=== PATIENT | female | born 1965 | race Caucasian/White ===

== ENCOUNTER 2024-06-20 08:44 | Day surgery (SDC) | payer BC, SELFPAY ==
[2024-06-18 14:43] VITALS: BMI 22.1
--- NOTE | 2024-06-19 10:08 | P.CONAN_ITS ---
Documented by User: Geri Donaldson NP 06/19/24 10:08 HPI - Anesthesia Eval Consult details Narrative: 59yo F for Colonoscopy PMFSH Past Medical History Medical History Anxiety OCD (obsessive compulsive disorder) Thalassemia Surgical History Surgical History History of repair of ACL Hx of varicose vein ligation Hx of laparoscopy Hx of hand surgery H/O colonoscopy Social History Social History Household Members: Significant Other Are you a primary healthcare risk control consultant to a significant other at home: No Do you presently have visiting nurse or other home services: No Patient Tobacco Use Status: Never used Tobacco Use of substances other than those prescribed or required for medical reasons: No Have you been hit, kicked, punched, or otherwise hurt by someone within the past year? If so, by whom?: No Are you DNR?: No Advance Directives: No Advance Directives Information Provided: Yes Recently lost weight without trying: No How much weight loss: Not applicable Eating poorly because of decreased appetite: No Nutrition screen score: 0 Nutrition Risks: No Nutritional Risk Patient : No : No Poor oral hygiene: Yes (missing front tooth) Meds Allergies Allergy/AdvReac Type Severity Reaction Status Date / Time lactose Allergy Intermediate Gastrointestinal Verified 06/20/24 08:55 Upset Iodinated Contrast Media Allergy Unknown Unknown Verified 06/20/24 08:55 [IV Contrast Dye] shellfish derived Allergy Unknown Unknown Verified 06/20/24 08:55 Home Medications ?Medication ?Instructions ?Recorded ?Confirmed ?Last Taken ?Type aripiprazole 2 mg tablet 2 mg PO QAM 06/18/24 06/20/24 Unknown History ascorbic acid (vitamin C) 500 mg 500 mg PO DAILY 06/18/24 06/20/24 Unknown History tablet,extended release (Vitamin C ER) latanoprost 0.005 % eye drops 1 drp ophthalmic (eye) BEDTIME 06/18/24 06/20/24 Unknown History lorazepam 0.5 mg tablet 0.5 mg PO BID PRN Anxiety 06/18/24 06/20/24 Unknown History Exam Height,Weight and Vital Signs: Height 5 ft 3.5 in Weight 57.606 kg Assessment and Plan Assessment Anesthesia Assessment: Chart Reviewed Documented by User: Yamile Jerez MD 06/20/24 10:26 PMFSH Past Medical History Medical History Anxiety OCD (obsessive compulsive disorder) Thalassemia Family History Family history of problems with anesthesia: No Surgical History Surgical History History of repair of ACL Hx of varicose vein ligation Hx of laparoscopy Hx of hand surgery H/O colonoscopy History of Problems with Anesthesia: No Social History Social History Household Members: Significant Other Are you a primary healthcare risk control consultant to a significant other at home: No Do you presently have visiting nurse or other home services: No Patient Tobacco Use Status: Never used Tobacco Use of substances other than those prescribed or required for medical reasons: No Have you been hit, kicked, punched, or otherwise hurt by someone within the past year? If so, by whom?: No Are you DNR?: No Advance Directives: No Advance Directives Information Provided: Yes Recently lost weight without trying: No How much weight loss: Not applicable Eating poorly because of decreased appetite: No Nutrition screen score: 0 Nutrition Risks: No Nutritional Risk Patient : No : No Poor oral hygiene: Yes (missing front tooth) Meds Allergies Allergy/AdvReac Type Severity Reaction Status Date / Time lactose Allergy Intermediate Gastrointestinal Verified 06/20/24 08:55 Upset Iodinated Contrast Media Allergy Unknown Unknown Verified 06/20/24 08:55 [IV Contrast Dye] shellfish derived Allergy Unknown Unknown Verified 06/20/24 08:55 Home Medications ?Medication ?Instructions ?Recorded ?Confirmed ?Last Taken ?Type aripiprazole 2 mg tablet 2 mg PO QAM 06/18/24 06/20/24 Unknown History ascorbic acid (vitamin C) 500 mg 500 mg PO DAILY 06/18/24 06/20/24 Unknown History tablet,extended release (Vitamin C ER) latanoprost 0.005 % eye drops 1 drp ophthalmic (eye) BEDTIME 06/18/24 06/20/24 Unknown History lorazepam 0.5 mg tablet 0.5 mg PO BID PRN Anxiety 06/18/24 06/20/24 Unknown History Exam Height,Weight and Vital Signs: Height 5 ft 3.5 in Weight 57.606 kg Vital Signs Temp Pulse Resp BP Pulse Ox O2 Del Method 06/20/24 09:14 98.3 F 57 16 122/63 100 Room Air Narrative Narrative: 06/20/24: 12 lead EKG: SR 61. 1st degree AV block. RBBB. LAFB. Bifascicular block. Possible lateral infact, age undetermined. Counselled to follow up with PCP/Cardiology Echo 2008 for 'abnormal ekg'. EKG image not available. Echo EF 60-65%. No RWMA. LV wall thickness normal. Diastolic filling pattern normal for age Airway Mallampati Class: II TM Dist: >3cm Neck ROM: Full Partial: Upper Loose/Missing/Broken Teeth: Yes (Missing tooth top front. Denies broken or loose teeth) Heart: RRR Lungs: CTAB Assessment and Plan Assessment Anesthesia Assessment: Anesthesia Plan Discussed and Chart Reviewed Final Anesthetic Review Family History of Problems with Anesthesia: No History of Problems with Anesthesia: No NPO: Yes ASA Class: II Final Preanesthetic Review: No Changes in Pt Med Stat, Meds/Allgs Chart Reviewed, Consent Obtained/Reviewed and Anes Risks/Benef Reviewed Patient Risk: Low Procedure Risk: Low Assessment/Block/Sedation in SS: Assess/Block/Sedation-SS Anesthetic Plan Anesthetic Plan: TIVA Disposition: Standard PACU
--- NOTE | 2024-06-20 | ECG_ITS ---
Test Reason : Rhythm Blood Pressure : / mmHG Vent. Rate : 061 BPM Atrial Rate : 061 BPM P-R Int : 240 ms QRS Dur : 148 ms QT Int : 466 ms P-R-T Axes : 000 -85 007 degrees QTc Int : 469 ms Sinus rhythm with 1st degree A-V block Right bundle branch block Left anterior fascicular block Bifascicular block Possible Lateral infarct , age undetermined Abnormal ECG No previous ECGs available Referred By: Yamile Jerez Electronically Signed By:LYN HUMPHREYS
[2024-06-20 08:57] VITALS: BMI 22.2
[2024-06-20 09:14] VITALS: BP 122/63; PULSE 57; RESP 16; TEMP 36.8; O2SAT 100
--- NOTE | 2024-06-20 09:42 | PC.NURSE ---
No previous EKG on file. Monitor showing SR with possible first degree heart block and RBBB. No cardiac history. Dr. Jerez at bedside and made aware. EKG ordered and verified findings. No new orders at this time.
[2024-06-20] MEDS: Lactated Ringers 1,000 ML 100 ML IVCONT (09:48)
--- NOTE | 2024-06-20 11:08 | PM.OP ---
Brief Operative Note Date of Service: 06/20/24 Pre-op diagnosis: Screening Post-op diagnosis: other (Diverticulosis) Procedure: Colonoscopy to the cecum and TI Surgeon: Reagan Corrales MD Anesthesia: MAC Was an Tractor Mechanic Apprentice used for this Procedure?: No Estimated blood loss (mL): 0 Pathology: none sent Condition: stable Disposition: PACU
[2024-06-20 11:10] VITALS: BP 113/61; PULSE 59; RESP 18; TEMP 36.3; O2SAT 100
--- NOTE | 2024-06-20 11:19 | OP_ITS ---
DATE OF SERVICE: 06/20/2024 SURGEON: Reagan Corrales MD INDICATIONS: The patient presents for evaluation of personal history of tubular adenoma of the colon and colorectal cancer screening. Full consent has been obtained from her for this, including risks of bleeding and perforation. PREOPERATIVE DIAGNOSIS: POSTOPERATIVE DIAGNOSIS: PROCEDURE PERFORMED: Colonoscopy to the cecum and terminal ileum. ESTIMATED BLOOD LOSS: COMPLICATIONS: ANESTHESIA: Monitored anesthesia care. ASSISTANTS: SPECIMENS: PREOPERATIVE DIAGNOSES: Colorectal cancer screening and personal history of tubular adenoma of the colon. POSTOPERATIVE DIAGNOSES: Colorectal cancer screening, personal history of tubular adenoma of the colon, mild sigmoid diverticulosis, and small internal hemorrhoids. DESCRIPTION OF PROCEDURE: The patient was placed in the left lateral decubitus position. The digital rectal exam revealed no abnormalities. The Olympus video pediatric colonoscope was then entered into the rectum and advanced easily to the cecum. Once in the cecum, I did identify normal-appearing cecal pouch with appendiceal orifice and a normal-appearing ileocecal valve. The terminal ileum was cannulated and appeared normal. Scope was withdrawn back in the colon. The entire cecum and ileocecal valve appeared normal. The scope was slowly withdrawn assessing all mucosal surfaces carefully. Preparation was excellent. I did not visualize any sign of polyps, colitis, nor angiodysplasias. There was a mild amount of sigmoid diverticulosis. In the rectum, scope was retroflexed, visualizing small internal hemorrhoids, but no other pathology. The rectal mucosa appeared normal. The scope was straightened and withdrawn from the patient. She tolerated the procedure well and was returned to the recovery area in stable condition. IMPRESSION: 1. Mild diverticulosis. 2. Small internal hemorrhoids. PLAN: I would recommend a repeat colonoscopy in 5 years for further screening. She will, otherwise, see me on a p.r.n. basis. MD BRENTON Beltran/ANDREW / [id number]
[2024-06-20 11:25] VITALS: BP 120/60; PULSE 63; RESP 18; TEMP 36.3; O2SAT 99
== END 2024-06-20 11:50 | disposition home or self-care (01) ==
PROVIDERS: PCP Family Medicine; Visit Provider Internal Medicine
PROC: 0DJD8ZZ Inspection of Lower Intestinal Tract, Via Natural or Artificial Opening Endoscopic (ICD-10-PCS; CPT 45378; principal; 2024-06-20 10:30)
DX: Z12.11 Encounter for screening for malignant neoplasm of colon (principal); Z86.010 Personal history of colon polyps; K57.30 Diverticulosis of large intestine without perforation or abscess without bleeding; K64.8 Other hemorrhoids; D56.9 Thalassemia, unspecified; F42.9 Obsessive-compulsive disorder, unspecified; F41.9 Anxiety disorder, unspecified; Z79.899 Other long term (current) drug therapy; Z98.890 Other specified postprocedural states
CPT/HCPCS: 45378; 93005; J2704

== ENCOUNTER 2025-06-10 08:47 | Outpatient (AMB) | payer BC, SELFPAY ==
--- OUTSIDE RECORDS SUMMARY | 2023-11-19 08:44 | XMS_ITS | Continuity of Care Document ---
Author Organization [facility] Address [address] [place] [address] Phone Care Team Providers Care Instructor Military Science Name Role Phone Juan Alberto Lassiter MD Unavailable Unavailable Procedures Procedure Date Office/Outpt E&M Established 15 Mins Nov Duplex Scan-extrem Veins; / Duplex Scan-extrem Veins; / Office/Outpt E&M Established 15 Mins Oct Surgical Stockings CEP Knee High -30 J Phleb Veins - Extrem - To 20 Duplex Scan-extrem Veins; / 24 Endovenous Rf, 1st Vein Endovenous Laser, 1st Vein Office/Outpt E&M Established 10 Mins - T elemedicine Offic Cons New/estab Mod 40 Mi 23 Duplex Scan-extrem Veins; Uni/ 23 Advance Directives Directive Yes / No Effective Date File Name No Information Encounters Encounter Description Practice Location Reason(s) For Visit Diagnoses Date Provider Providers Copied on Encounter [facility], [address] [address], [id number], [place] tel:[phone] [facility] No Information 4 Sravani Avendano. [address], [place], [place], [id number]. tel:[phone] Office/Outpt E&M Established 15 Mins [facility], [address] [place] [address] Dr [address] 1000Shy [place], [id number], tel:[phone] [facility] Chronic venous hypertension (idiopathic) with other complications of left lower extremity 4 Liu HERNANDEZ RVT, TAY Kirk. [address] [place] [address], [place], [id number], [place]. tel:[phone] Referring Provider: Waldemar Mauro MD, [facility] [place] [address], [place], [address]. tel:[phone] [facility], [address] [place] [address] Dr [address] [place], [place] [address]S[place], [id number], [place] tel:[phone] [facility] [place] Encounter for follow-up examination after completed treatment for conditions other than malignant neVaricose veins of left lower extremity with pain 4 Liu HERNANDEZ RVT, RPVI Robert. [address] [place] [address], [place], [id number], [place]. tel:[phone] Referring Provider: Waldemar Mauro MD, [facility] [place] [address], [place], [address]. tel:[phone] [facility], [address] [place] [address] Dr [address]hel[address] 1000[facility] [address]Shy [place], [id number], [place] tel:[phone] [facility] [place] Encounter for follow-up examination after completed treatment for conditions other than malignant nePain in left lower leg 4 Liu HERNANDEZ RVT, TAY Kirk. [address] [place] [address], [place], [id number], [place]. tel:[phone] Referring Provider: Waldemar Mauro MD, [address] [place] [address], [place], [address]. tel:[phone] Office/Outpt E&M Established 15 Mins [facility], [address] [place] [address] Dr [address] 1000[facility] [address], [id number], [place] tel:[phone] [facility] Venous insufficiency (chronic) (peripheral)P ain in left leg 4 Liu HERNANDEZ RVT, TAY Kirk. [address] [place] [address], [place], [id number], [place]. tel:[phone] Referring Provider: Waldemar Mauro MD, [facility] [address] [place] [address], [place], [address]. tel:[phone] [facility], [address] [place] [address] Dr [address]hel[address] 1000[facility] 1000[place]hy [place], [id number], [place] tel:[phone] [facility] Varicose veins of left lower extremity with other complications 4 Mary Flores. [facility], [facility] [address], [place], [id number], [place]. tel:[phone] Referring Provider: Waldemar Mauro MD, [facility] [address] [place] [address], [place], [address]. tel:[phone] [facility], [address] [place] [address] Dr [address]S[place], [id number], [place] tel:[phone] [place] Encounter for follow-up examination after completed treatment for conditions other than malignant neVaricose veins of left lower extremity with pain 4 Liu HERNANDEZ RVT, TAY Kirk. [address] [place] [address], [place], [id number], [place]. tel:[phone] Referring Provider: Waldemar Mauro MD, [address] [place] [address], suite [facility], [place], [address]. tel:[phone] [facility], [address] [place] [address] Dr [address]Shy [place], [id number], [place] tel:[phone] [place] Chronic venous hypertension (idiopathic) with inflammation of left lower extremity 4 Liu HERNANDEZ, RVT, TAY Kirk. [facility], [address], [place], [id number], [place]. tel:[phone] Referring Provider: Waldemar Mauro MD, [address] [facility], [address], [place], [address]. tel:[phone] [facility], [address] [place] [address] Dr [address]Shy [place], [id number], [place] tel:[phone] [place] Varicose veins of left lower extremity with other complications 4 Liu HERNANDEZ, SADIE, TAY Kirk. [facility], [address], [place], [id number], [place]. tel:[phone] Referring Provider: Waldmear Mauro MD, [address] [facility], [address], [place], [address]. tel:[phone] Office/Outpt E&M Established 10 Mins - [facility], [address] [place] [address] Dr [address]Shy [place], [id number], [place] tel:[phone] [place] Varicose veins of left lower extremity with pain 3 Ronak HERNANDEZ FACS RVT TAY Cabrales. [facility], [address], [place], [address], [place]. tel:[phone] Referring Provider: Waldemar Mauro MD, [address] [place] [address], [address], [place], [address]. tel:[phone] Offic Cons New/estab Mod 40 Nm [facility], [address] [place] [address] Dr [address], [id number], [place] tel:[phone] [place] Pain in left lower legLocalized edemaCramp and spasmVaricose veins of left lower extremity with painFlail joint, unspecified joint 3 Ronak [facility]Z [facility]. [address] [place] [address], [place] [address], [place], [address], [place]. tel:[phone] Referring Provider: Waldemar Mauro MD, [facility] [address] [place] [address], [facility] [place], [address]. tel:[phone] [facility], [address] [facility] [address], [place], [id number], [place] tel:[phone] [place] Varicose veins of left lower extremity with pain 3 Ronak HERNANDEZ [facility]. [address] [place] [address], [place] [address], [place], [address], [place]. tel:[phone] Referring Provider: Waldemar Mauro MD, [address] [facility] [address] [place] [address], [facility] [place], [address]. tel:[phone] Family History Family Member Type Diagnosis Age At Onset No Information Payers Payer name Insurance type Covered republican ID Authoriza tiheath(s) [facility] [id number] Social History Type Description Quantity Date Captured Comments Alcohol Use Details Unknown Caffeine Use Details Unknown Tobacco Use Status No Information Smoking Status No Information Sex Female Chief Complaint And Reason For Visit No Information Reason For Referral Reason For Referral No Information Plan Of Treatment Date Type Action Status Goal Diet education completed Goal Tobacco cessation counseling completed Goal Tobacco cessation counseling completed Goal Diet education completed Referral Ordered: Weight management: Referral to physician timeframe: 3 Months (related to Body mass index (BMI) 23.0-23.9, adult) ordered Referral Ordered: Weight management: Referral to physician timeframe: 3 Months (related to Body mass index (BMI) 23.0-23.9, adult) ordered History Of Present Illness Encounter Date Complaint History Of Prese nt Illness No Information Functional Status Date Functional Assessmen t No Information Instructions Date Instruction Additional Infor taj Patient education booklet given Related to Chronic venous hypertension (idiopathic) with other complications of left lower extremity Lifestyle education Related to B jose mass index (BMI) 23.0-23.9, adult Giving Encouragement to exercise Related to Body mass index (BMI) 23.0-23.9, adult Diet education Related to Body mass index (BMI) 23.0-23.9, adult Pre and post instruc tions reviewed and provided Related to Pain in left lower leg Patient education booklet given Related to Pain in left lower leg Lifestyle education Related to B jose mass index (BMI) 23.0-23.9, adult Giving Encouragement to exercise Related to Body mass index (BMI) 23.0-23.9, adult Diet education Related to Body mass index (BMI) 23.0-23.9, adult Assessments Type Assessment Date No Information Patient Care Teams Name Effective Dates (start - stop) Status Members No Information
--- OUTSIDE RECORDS SUMMARY | 2024-06-20 06:20 | XMS_ITS ---
Author Organization [facility] Address [address] [place] [address] Care Team Providers Care Ophthalmic Pathologist Name Role Phone Waldemar Mauro Primary Care Provider Reagan Sauer [phone] REASON FOR VISIT screening,hx polyps Problems Problem Type SNOMED Code ICD Code Onset Dates Problem Status W/U Status Risk Notes Problem Personal history of colonic polyps (Z86.010) Active confirmed Problem Diverticular disease of colon (412596403) Diverticulosis of large intestine without perforation or abscess without bleeding (K57.30) Active confirmed Encounters Encounter Location Date Provider Diagnosis [facility] Outpatient [address] [place] [phone] 06/20/2024 Reagan Corrales Colon cancer scree lizbeth [...] * DIMITRI WALTERDOB: 3 (60 yo F)Acc No.[id number]:06/20/2024 COLON WITH MAC Patient: Warren DIMITRI HAMMONDS Provider: Hector Corrales MD :1965 A ge:59 Y S ex:Female Date:06/20/2024 Address:[address] [place] [address] [id number] Pcp:Waldemar Mauro Subjective: * Chief Complaints: * [...] 0 06/20/2024 Generated for Joselo mendosa/Lucia/Tracyitting on: 0 06/10/2025 09:16 AM EDT
--- NOTE | 2025-06-10 08:54 | A.OFFVIS_ITS ---
Vital Signs 06/10/25 08:55 Height 5 ft 3.5 in Weight 131 lb BMI 22.8 BP 120/82 Blood Pressure Location Lt brachial Position Sitting Pulse 66 Intake Visit Reasons: HEAD OF BUSINESS DEVELOPMENT/ Dr Mauro/trans myocardial ischemia Intake Note: New patient Dr Mauro head arrthymia during colonoscopy then stress test showed ? blockage little sob at times Highway Landscape Architect Required: No Allergies lactose Allergy (Intermediate, Verified 06/20/24 08:55) Gastrointestinal Upset Iodinated Contrast Media (IV Contrast Dye) Allergy (Unknown, Verified 06/20/24 08:55) Unknown shellfish derived Allergy (Unknown, Verified 06/20/24 08:55) Unknown Medication List - Last Reconciled 06/10/25 by Bakari Stewart MD aripiprazole 2 mg PO QAM ascorbic acid (vitamin C) ER (Vitamin C ER) 500 mg PO DAILY aspirin 81 mg PO DAILY latanoprost 0.005% 1 drp ophthalmic (eye) BEDTIME lorazepam 0.5 mg PO BID PRN rosuvastatin 20 mg PO BEDTIME HPI Comments Details: Thank you for referring Melisa in cardiology consultation today for abnormal stress test. Patient is a 60-year-old extremely active female with no significant past risk factors except for hyperlipidemia. Last year during colonoscopy she was told that she had abnormal EKGs and subsequently she has pull back on her work out. Prior to that she said she used to do heavy workup without having any active symptoms. Since cutting down on activity level she has notice now that she would get short of breath with sudden activity level that she was not in the past. She had no associated chest pain. She says she had also put on some of want her weight. However due to the abnormal EKGs he subsequently underwent nuclear stress test which was done at outside facility which was abnormal and she was referred here for further evaluation. She is concerned about obviously these findings and abnormal EKG. However she continues to have no new other symptoms at this point time. Denies any orthopnea, PND, leg edema. She had echocardiogram 2016 at [facility] which showed normal LV ejection fraction with mild prolapse of the mitral valve which she is aware of from before. She has been started on aspirin and rosuvastatin since the results of her stress test and referred here for further workup. She had a coronary calcium score which was reported as 0. PFSH Medical History Anxiety OCD (obsessive compulsive disorder) Thalassemia Surgical History History of repair of ACL Hx of varicose vein ligation Hx of laparoscopy Hx of hand surgery H/O colonoscopy Family History Father No problems noted. Mother Cancer Social History Household Members: Significant Other Are you a primary manager long term care to a significant other at home: No Do you presently have visiting nurse or other home services: No Patient Tobacco Use Status: Never used Tobacco Review of Systems Const Denies chills, Denies daytime sleepiness, Reports fatigue, Denies fever(s), Denies frequent falls, Denies poor appetite, Reports snoring, Denies stops breathing during sleep, Denies weakness, Reports weight gain and Denies weight loss Eyes Denies loss of vision ENT Denies dizziness and Reports hearing loss Card Denies chest pain, Denies claudication, Denies leg edema, Denies lightheadedness, Denies palpitations, Denies dyspnea, Denies dyspnea on exertion and Denies orthopnea Resp Denies cough, Denies excessive phlegm production, Denies dyspnea, Denies dyspnea on exertion, Reports snoring and Denies wheezing GI Denies abdominal pain, Denies hematochezia, Denies change in bowel habits, Denies nausea and Denies vomiting Denies urinary frequency and Denies dysuria Musc Denies arthralgias, Reports muscle weakness and Denies numbness Skin/Breast Denies nail changes and Denies rash Neuro Denies Abnormal speech present, Denies dizziness, Denies frequent falls, Denies loss of vision, Denies memory loss, Denies numbness and Denies weakness Psych Denies depression and Denies memory loss Endo Reports fatigue and Denies palpitations Kulwinder/Lymph Reports easy bruising and Reports other (anemia) Aller/Immun Denies wheezing Physical Exam Vital Signs: Last Vital Signs Pulse 66 06/10/25 08:55 BP 120/82 06/10/25 08:55 BMI result Body Mass Index 22.8 Const General: cooperative, comfortable, no acute distress, well developed, alert, awake, Physically active and well groomed Nutritional Appearance: average body habitus and well nourished Orientation/consciousness: patient oriented x3 Limitations: no limitations HEENT Head: Yes normocephalic and Yes atraumatic Neck Neck: Yes trachea midline, Yes supple and Yes no JVD Resp Effort & Inspection: normal respiratory effort Auscultation: clear to auscultation bilaterally Cardio Jugular venous distension: no JVD Palpation: normal PMI Rate: regular rate Rhythm: regular rhythm Heart sounds: S1 normal heart sound present, S2 normal heart sound present, no click, no gallops, no murmurs and no rubs Bruits: no carotid bruits GI Auscultation: normal bowel sounds Skin General skin exam: no rashes or lesions noted Neuro General: patient oriented x3 and no focal motor deficits Speech: No Abnormal speech present Extrem General: Yes no clubbing, cyanosis or edema Psych Appearance: grossly normal Office Procedures EKG Details: EKG shows normal sinus rhythm first-degree AV block with right bundle-branch block and possible left anterior fascicular block with poor R-wave progression [place]. [id number], Complete Assessment & Plan Assessment & Plan (1) Abnormal EKG: Code(s): R94.31 - Abnormal electrocardiogram [ECG] [EKG] Category: Medical Plan: Abnormal EKG in this middle-aged woman with prior history of hyperlipidemia with abnormal nuclear stress test without any concerning symptoms with a coronary calcium score is 0. Her likelihood of obstructive coronary artery disease is low although given her abnormal EKG structural heart disease needs to be ruled out. I would suggest her to undergo coronary CTA for further evaluation for significant obstructive coronary artery disease that will guide treatment. Possibility of false-positive myocardial perfusion imaging was discussed with her. She understands. Further treatment based on the findings of coronary CTA. Till then I would continue low-dose aspirin as well as rosuvastatin therapy and avoid extreme strenuous activity but advised to maintain her active lifestyle. Will also suggest an echocardiogram to rule out any other structural abnormalities including LV systolic dysfunction and worsening valvular function although clinically she has no signs or symptoms of heart failure. This was discussed with her. She understands and agrees. Will follow up in the clinic after above-mentioned test. Thank you for allowing me to partake in her care Coding Level of Care Code New Pt Level 4 (31061) Complex EM visit Add On G2211 Diagnoses Abnormal EKG R94.31 CPT Codes EKG - CPT: 10715-[id number], Complete ([id number])
[2025-06-10 08:55] VITALS: BP 120/82; PULSE 66; BMI 22.8
--- OUTSIDE RECORDS SUMMARY | 2025-06-10 09:15 | XMS_ITS | Clinical Summary ---
Author Organization [address] [place] [address] Address [address] [place] [address] Phone Care Team Providers Care Obstetrics Teacher Name Role Phone Waldemar Mauro MD Primary Care Provider [phone] Allergies Active Allergy Reactions Criticality Noted Date Comments Iodinated Contrast Media Anaphylaxis High 05/05/2025 Iodinated contrast media (substance) Shellfish Derived Anaphylaxis High 05/05/2025 Shrimp Anaphylaxis High 01/19/2017 Medications ARIPiprazole (ABILIFY) 2 mg tablet Take 1 tablet (2 mg total) by mouth 1 (one) time each day in the morning. 11/08/2024 Active Encounters Date Type Department Care Team Description 05/05/2025 1:00 PM EDT Ancillary Procedure [facility]ac, Located Within [facility] [address] [id number] Other forms of dyspnea 04/16/2025 Telephone Ltac, Located Within [facility] [address] [id number] Waldemar Mauro MD from Last 3 Months Social History Tobacco Use Types Packs/Day Years Used Date Smoking Tobacco: Never Smokeless Tobacco: Never Tobacco Cessation:Counseling Given: Not Answered Alcohol Use Standard Drinks/Week Comments Yes 0 (1 standard drink = 0.6 oz pur e alcohol) occ Comments Unknown Sex and Gender Information Value Date Recorded Sex Assigned at Not on file Legal Sex Female 4:52 PM EST Gender Identity Not on file Sexual Orientation Not on file Obstetrics History Last Filed Vital Signs Vital Sign Reading Time Taken Comments Blood Pressure 138/87 05/05/2025 1:13 PM EDT Pulse - - Temperature - - Respiratory Rate - - Oxygen Saturation - - Inhaled Oxygen Concentration - - Weight 59.9 kg (132 lb) 05/05/2025 12:59 PM EDT Height 160 cm (5' 3 ) 05/05/2025 12:59 PM EDT Body Mass Index 23.38 05/05/2025 12:59 PM EDT Plan of Treatment Upcoming Encounters Date Type Department Care Team (Late st Contact Info) Description 07/29/2025 8:00 AM EDT Ancillary Procedure [facility] [address] [facility] [address] [place] [address] Health Maintenance Due Date Last Done Comments Pneumococcal Vaccine: 50+ Years (1 of 2 - PCV) 1982 Cervical Cancer Screening: Pap Smear 1984 Zoster Vaccines (1 of 2) 2013 RSV Immunization Adult Patients (1 - Risk 60-74 years 1-dose series) 2023 Depression Screening 10/08/2024 Cholesterol Screening (Lipid Panel) 04/17/2025 Colorectal Cancer Screening: Colonoscopy 04/17/2025 HIV Screening 04/17/2025 Hepatitis C Screening 04/17/2025 Social Influencers of Health Screening 04/17/2025 Influenza Vaccine (#1) 2025 08/02/2020 Breast Cancer Screening 03/27/2027 03/27/2025 DTaP,Tdap,and Td Vaccines (3 - Td or Tdap) 09/13/2030 09/13/2020, 10/08/2009 COVID-19 Vaccine Completed 09/15/2024, , 06/26/2022, Additional history exists HIB Vaccines Aged Out No longer eligi ble based on patient's age to complete this topic HPV Vaccines Aged Out No longer eligi ble based on patient's age to complete this topic Hepatitis A Vaccines Aged Out No long er eligible based on patient's age to complete this topic Hepatitis B Vaccines Aged Out No long er eligible based on patient's age to complete this topic IPV Vaccines Aged Out No longer eligi ble based on patient's age to complete this topic MMR Vaccines Aged Out No longer eligi ble based on patient's age to complete this topic Meningococcal ACWY Vaccine Aged Out N o longer eligible based on patient's age to complete this topic Meningococcal B Vaccine Aged Out No l onger eligible based on patient's age to complete this topic RSV Immunization Patients Under 20 months Aged Out No longer eligible based on patient's age to complete this topic Varicella Vaccines Aged Out No longer eligible based on patient's age to complete this topic Procedures Procedure Name Priority Date/Time Associated Diagnosis Comments NM EXERCISE STRESS TEST W/ MYOCARDIAL PERFUSION Routine 05/05/2025 3:14 PM EDT Other forms of dyspnea from Last 3 Months Results * NM EXERCISE STRESS TEST W/ MYOCARDIAL PERFUSION (05/05/2025 3:14 PM EDT) Exercise/injec tion duration (min) 6 CV PACS STRESS Exercise/injec tion duration (sec) 51 CV PACS STRESS Peak SBP 156 mmHg CV PACS STRESS Peak DBP 76 mmHg CV PACS STRESS Peak HR 150 bpm CV PACS STRESS Baseline HR 91 bpm CV PACS STRESS Baseline SBP 138 mmHg CV PACS STRESS Baseline DBP 87 mmHg CV PACS STRESS Estimated workload 9.5 METS CV PACS STRESS Percent HR 94 % CV PACS STRESS Rate Pressure Product 23,400.0 mmHg*bpm CV PACS STRESS Target HR 135 bpm CV PACS STRESS TID 1.22 CV PACS STRESS Nuc Stress EF 75 % CV PAC S STRESS Nuc Rest EF 73 % CV PACS STRESS BSA 1.63 m2 CV PACS STRESS Angina Index 0 CV PACS STRESS Max HR Percent 94 % CV PA CS STRESS O2 sat rest 98 % CV PACS STRESS Anatomical Region Laterality Modality Nuclear Medicine 05/05/2025 1:49 PM EDT 05/05/2025 2:20 PM EDT Impressions 05/07/2025 7:44 AM EDT 1. Abnormal exercise nuclear stress test. 2. Exercise protocol: The patient exercised for 6 minutes and 51 seconds. The patient achieved 94% of the Max predicted heart rate 3. Functional capacity: Above average functional capacity for age and gender 4. Symptoms: No chest pain during the exercise protocol 5. Stress ECG: No ischemic ECG changes with exercise, in the setting of an abnormal baseline 6. Myocardial perfusion imaging: - Myocardial perfusion imaging revealed a small in size and mild in intensity reversible perfusion defect in the apical inferior wall, suggestive of ischemia. -No evidence of any fixed perfusion defects on the myocardial perfusion imaging to suggest the presence of an infarct 7. TID was noted to be at the upper limit of normal at 1.22 8. Gated images revealed normal LV wall motion and thickening; with a normal LV systolic function (LVEF 73%). Narrative 05/07/2025 7:44 AM EDT Stress Findings A Jose protocol stress test was performed. Overall, the patient's exercise capacity was above average. Total stress time was 6 min and 51 sec. The patient experienced no angina during the test. The patient requested the test to be stopped. The patient's hemodynamic response was adequate for diagnosis. Blood pressure demonstrated a normal response. Heart rate demonstrated a normal response. The patient reported no symptoms during the stress test. ECG 59-year-old female with dyspnea and abnormal ECG; rule out ischemia. The patient has no cardiac risk factors and no known previous cardiac events. Baseline ECG shows sinus rhythm with a right bundle branch block. There were no arrhythmias during stress. There is no significant ST abnormalities during stress, in the setting of an abnormal baseline. There were no arrhythmias during recovery. No significant ischemic changes, in the setting of an abnormal baseline. Nuclear Study Quality Study technique: MPI, SPECT, multi, rest and stress, 1 day and gated. Overall image quality is good. CT attenuation correction was utilized. No radiopharmaceutical dose was extravasated. The time from injection to rest imaging is 35 mins. The time from injection to stress imaging is 40 mins. Perfusion Defect Conclusion There is no evidence of transient ischemic dilation (TID). Stress Function Comments Left ventricular systolic function post-stress is normal. Stress ejection fraction is 75%. Rest Function Comments Left ventricular function at rest was normal. Resting ejection fraction was 73%. Stress Combined Conclusion SCAN FINDINGS: Nuclear imaging of the left ventricle reveals normal cavity size at rest with no change on stress imaging. Myocardial perfusion imaging of the left ventricle reveals a small in size and mild in intensity reversible perfusion defect in the apical inferior wall. No fixed perfusion defects Gated SPECT imaging was performed which demonstrated normal LV function and thickening with a calculated LVEF of 73% Perfusion Scoring Resting Summed Score: 0 Percent Normal: 0.00% The left ventricular perfusion is normal. Perfusion Scoring Stress Summed Score: 1 Percent Normal: 1.47% Mild count reduction in the following segments: apical inferior. All other segments are normal. Perfusion Scores: SRS Score: 0 Percentage Abnormal: 0.00% Perfusion Scores: SSS Score: 1 Percentage Abnormal: 1.47% Perfusion Scores: SDS Score: 1 Percentage Abnormal: 1.47% Waldemar Mauro MD CV STRESS PROCEDURES Final Res ult from Last 3 Months Insurance [facility] Care Teams Obstetrics Teacher Relationship Specialty [place] [address] [place] [id number] PCP - General Family Medicine 04/15/25
--- OUTSIDE RECORDS SUMMARY | 2025-06-10 09:16 | XMS_ITS | Clinical Summary ---
Author Organization [address] Address [address] [place] [address] Phone Care Team Providers Care Family And Consumer Science Professor Name Role Phone Erich Connor MD Primary Care Provider [phone] Allergies No known active allergies Medications EPINEPHrine (EPIPEN) 0.3 mg/0.3 mL AtIn Inject 0.3 mg into the muscle as needed. 2 each 2 01/20/2017 Active Social History Tobacco Use Types Packs/Day Years Used Date Smoking Tobacco: Never Alcohol Use Standard Drinks/Week Comments Yes 0 (1 standard drink = 0.6 oz pur e alcohol) Comments No Sex and Gender Information Value Date Recorded Sex Assigned at Not on file Legal Sex Female 8:50 PM EDT Gender Identity Not on file Sexual Orientation Not on file Last Filed Vital Signs Vital Sign Reading Time Taken Comments Blood Pressure 102/56 01/21/2017 1:00 AM EDT Pulse 76 01/21/2017 1:00 AM EDT Temperature 36.8 C (98.3 F) 01/20/2017 8:59 PM EDT Respiratory Rate 18 01/21/2017 1:00 AM EDT Oxygen Saturation 97% 01/21/2017 1:00 AM EDT Inhaled Oxygen Concentration - - Weight 60.8 kg (134 lb) 01/20/2017 8:59 PM EDT Height - - Body Mass Index - - Plan of Treatment Health Maintenance Due Date Last Done Comments HIV screening 1976 Hepatitis C screening 1981 Tetanus adult (Td q 10,TDAP once) 1983 Cervical cancer screening 1984 Breast cancer screening 2003 Lipid disorder screening 2003 Colon cancer screening, Colonoscopy 2008 Diabetes screening 2008 Pneumococcal Vaccine (50+ ye ars) (1 of 1 - PCV) 2013 Shingles vaccine (Shingrix) (1 of 2 - Shingrix (RZV) 2 Dose Standard Series) 2013 Covid-19 vaccine series (1 - 2023-25 season) 2025 Influenza vaccine 06/08/2025 RSV Immunization (1 - 1-dose 75+ series) 2038 Meningococcal B Vaccine Aged Out No l onger eligible based on patient's age to complete this topic Meningococcal Vaccine Aged Out No filomena laci eligible based on patient's age to complete this topic Insurance [employer] Care Teams Family And Consumer Science Professor Relationship Specialty Start Date End Date Erich Connor MD [address] [phone] PCP - General Internal Medicine 01/20/17
--- OUTSIDE RECORDS SUMMARY | 2025-06-10 09:16 | XMS_ITS | Patient Health Record ---
Author Organization [facility] Address [address] [place] [address] Care Team Providers Care Collection Specialist Name Role Phone Waldemar Mauro Primary Care Provider Reagan Sauer [phone] Allergies Allergen (clinical drug ingredient) Drug/Non Drug Allergy documented on EMR Reaction Allergy Type Onset Date Status IVP Dye (uncoded) Unknown Allergy Ac tive dairy,cats,wheat,all shell fish (uncoded) Unknown Allergy Active Reason For Referral No Information Medications Medication SIG (Take, Route, Fr equency, Duration) Notes Start Date End Date Status LORazepam 0.5 MG Oral for 10 PRN A ctive Latanoprost 0.005 % INSTILL 1 DROP INTO BOTH EYES AT BEDTIME Ophthalmic for 75 Active ARIPiprazole 2 MG Oral for 30 Active Vitamin C 500 MG as directed Orally Active Immunizations Vaccine Route Administration Date Status Comme nts Influenza Unknown 10/09/2018 Refused Problems Problem Type SNOMED Code ICD Code Onset Dates Problem Status W/U Status Risk Notes Problem [id number] Encounter for screening for malignant neoplasm of colon (Z12.11) Active confirmed Problem Personal history of colonic polyps (Z86.010) Active confirmed Problem Diverticular disease of colon (180123128) Diverticulosis of large intestine without perforation or abscess without bleeding (K57.30) Active confirmed Problem 748622807085013 Preprocedural examination (Z01.818) Active confirmed Problem 240321504 Hx of adenomatou s colonic polyps (Z86.010) Active confirmed Encounters Encounter Location Date Provider Diagnosis [facility] Outpatient [address] [place] [phone] 06/20/2024 Reagan Corrales Colon cancer scree lizbeth [...] hemorrhoids (ICD-10 - K64.8) Plan Of Treatment Future Test Test Name Order Date COLONOSCOPY 05/20/2013 COLONOSCOPY 10/09/2018 COLONOSCOPY 03/14/2024 Insurance Providers Payer Name Payer Address Payer Phone Subscriber Number Group Number Insured Name Patient Relationship to Insured Coverage Start Date Coverage End Date [facility] [address] [place] [address] [id number] DIMITRI WALTER Self - patient is the insured Medical (General) History Medical History History ICD Code Denies [place],DM,CVA,Lung disease,renal dise ase Thalassemia with chronic ane azalea--had a neg transglutaminase IgA antibody, iron of 82 with iron saturation of 32%, and a hemoglobin of 11.6 with MCV of 64. Screening colonoscopy 05/2013 with a small tubular adenoma and mild diverticulosis Negative screening colonoscopy in 10/2018 OCD/anxiety Surgical History Surgery Date(Month/Year) hand surgery polyp removal(uterus) Varicose vein on LE ACL repair-right
== END 2025-06-10 09:53 | disposition home or self-care (01) ==
LOC: HO.HCS 08:48
PROVIDERS: PCP Family Medicine; Visit Provider Internal Medicine Cardiovascular Disease
DX: R94.31 Abnormal electrocardiogram [ECG] [EKG] (principal)
CPT/HCPCS: 93010; 99204

== ENCOUNTER → 2025-06-10 08:47 | Outpatient (BNVA) | payer BC, SELFPAY | PROVIDERS: PCP Family Medicine; Visit Provider Internal Medicine Cardiovascular Disease | DX: R94.31 Abnormal electrocardiogram [ECG] [EKG] (principal) | CPT/HCPCS: 93005 ==

== ENCOUNTER → 2025-07-24 08:48 | Outpatient (REF) | payer BC, SELFPAY ==
--- OUTSIDE RECORDS SUMMARY | 2024-06-20 06:20 | XMS_ITS ---
Author Organization [facility] Address [address] [place] [address] Care Team Providers Care Informatica Mdm Architect Name Role Phone Waldemar Mauro Primary Care Provider Reagan Sauer Unavailable [phone] REASON FOR VISIT screening,hx polyps Problems Problem Type SNOMED Code ICD Code Onset Dates Problem Status W/U Status Risk Notes Problem History of polyp of colon (situation) (297724647) Personal history of colonic polyps (Z86.010) Active confirmed Problem Diverticular disease of colon (460122396) Diverticulosis of large intestine without perforation or abscess without bleeding (K57.30) Active confirmed Encounters Encounter Location Date Provider Diagnosis [facility] Outpatient [address] [place] [id number] 06/20/2024 Reagan Corrales Colon cancer scree lizbeth Z12.11 ; Personal history of colonic polyps Z86.010 ; Diverticulosis of large intestine without perforation or abscess without bleeding K57.30 and Internal hemorrhoids K64.8 Assessments Encounter Date Diagnosis (ICD Code) Assessment Notes Treatment Notes Treatment Clinical Notes Section Notes 06/20/2024 Colon cancer screening (ICD-10 - Z12.11) 06/20/2024 Personal history of colonic polyps (ICD-10 - Z86.010) 06/20/2024 Diverticulosis of large intestine without perforation or abscess without bleeding (ICD-10 - K57.30) 06/20/2024 Internal hemorrhoids (ICD-10 - K64.8) Plan Of Treatment No Information Progress Notes * DIMITRI WALTERDOB: [birth year] (60 yo F)Acc No.[id number]:06/20/2024 COLON WITH MAC Patient: DIMITRI HAIRSTON Provider: Hector Corrales MD :1965 A ge:59 Y S ex:Female Date:06/20/2024 Address:[address] [place] [address] [id number] Pcp:Waldemar Mauro Subjective: * Chief Complaints: * 1 . Screening,hx polyps. * Medical History: Objective: * Vitals: Assessment: * Assessment: 1. C olon cancer screening - Z12.11 (Primary) 2 . P ersonal history of colonic polyps - Z86.010 3 . D iverticulosis of large intestine without perforation or abscess without bleeding - K57.30 4 . I nternal hemorrhoids - K64.8 ? Plan: * Treatment: * Procedure Codes: 4 5378 DIAGNOSTIC COLONOSCOPY * Preventive Medicine: KACI Screening: C olonoscopy W as interval between colonoscopies three years or more? Y es, W as last colonoscopy performed three or more years ago? Y es. * * The named appointment provid er may or may not be the originator of this progress note, and it is not deemed complete until electronically signed by the appointment provider. Sign off status: Pending * Provider: Hector Corrales MD Date: 0 06/20/2024 Generated for Joselo mendosa/Lucia/Tracyitting on: 1 09:18 AM EDT
--- NOTE | 2025-07-24 08:51 | CA_ITS ---
Transthoracic Echocardiogram Patient (Last, First, Middle): Melisa Encarnacion, Gender: F Date of : 1965 Age: 60 Procedure Date: 07/24/2025 Procedure Type: Transthoracic Echocardiogram Location: OP Height: 160.02 cm Weight: 59.42 kg BSA: 1.62 m2 Heart Rate: bpm BP: 118 / 60 mmHg Supervisor Lace Tearing: JASON Referring MD: Bakari Stewart MD Symptoms: R94.31 - Abnormal electrocardiogram [ECG] [EKG] Study Quality: Good ECG Rhythm: Sinus Conclusions: - Normal left ventricular size, thickness, systolic function, and wall motion. The visually estimated ejection fraction is between 55-60%. - E/E prime ratio is between 8 and 15 consistent with indeterminate filling pressures. - Normal right ventricular cavity size and systolic function. Findings Left Ventricle Normal left ventricular size, thickness, systolic function, and wall motion. The visually estimated ejection fraction is between 55-60%. Abnormal diastolic function is noted. Spectral Doppler is indicative of an impaired relaxation filling pattern. E/E prime ratio is between 8 and 15 consistent with indeterminate filling pressures. Right Ventricle Normal right ventricular cavity size and systolic function. Atria The left atrium is normal in size. The right atrium is normal in size. Aortic Valve Normal aortic valve structure and function. There is no aortic valve stenosis. There is no aortic valve regurgitation. Mitral Valve The mitral valve appears normal. There is trace mitral valve regurgitation. There is no mitral valve stenosis. Pulmonic Valve The pulmonic valve is normal. There is no pulmonic valve regurgitation. Tricuspid Valve Normal tricuspid valve structure. There is no tricuspid valve regurgitation. Normal right atrial pressure. There is no evidence of pulmonary hypertension. Great Vessels All visible segments of the aorta are normal in size. The visualized portions of the pulmonary artery and branches are normal. Venous The inferior vena cava is normal in size and collapses greater than 50% with inspiration. Pericardium/Pleural There is no evidence of pericardial effusion. Prior Study Comparison No prior study available for comparison. Measurements 2D Linear Measurements IVSd: 0.78 0.6-0.9/0.6-1.0 cm LVIDd: 4.68 3.9-5.3/4.2-5.9 cm LVIDd Index: 2.89 2.4-3.2/2.2-3.1 cm/m2 LVIDs: 2.71 2.0-3.6 cm LVPWd: 0.86 0.7-1.1 cm Ao Root: 3.00 2.1-3.5 cm LA Diam: 2.80 2.7-3.8/3.0-4.0 cm LAIDs Index: 1.73 1.5-2.3 cm/m2 LV Mass: 156.18 67-162/88-224 g LV Mass Index: 96.41 43-95/49-115 g/m2 LVOT Diam: 2.00 3.0+(-)1.3 cm Mitral Valve MV Pk E: 0.65 MV PK A: 0.82 MV Decel Time: 293.00 E/A: 0.80 E'Lateral: 5.44 E'Medial: 5.33 E/E' Med: 12.20 E/E' Lat: 12.00 PHT: 86.00 MVA PHT: 2.[address] [place]: 2.23 Aortic Valve AoV Pk Demar: 1.58 AoV Mn Demar: 1.08 AoV VTI: 0.35 AoV Pk Grad: 10.00 Aov Mn Grad: 5.00 JULIET Cont.VTI: 1.88 LVOT LVOT Pk Demar: 0.94 LVOT Mn Demar: 0.59 LVOT VTI: 0.21 LVOT Pk Grad: 4.00 LVOT Mn Grad: 2.00 LVOT Diam: 2.00 LVOT Area: 3.14 Diastolic Function MV Pk E: 0.65 MV Pk A: 0.82 E/A: 0.80 E'Medial: 5.33 E/E' Med: 12.20 E' Laterial: 5.44 E/E' Lat: 12.00 Right Ventricle TAPSE (mm): 28.00 Tricuspid Valve TR Pk Demar: 2.04 TR Pk Grad: 17.00 RA Press: 3.00 RVSP: 20.00 Great Vessels Aorta Ao Root-2D: 3.00 2.0-3.7 cm Ao Asc: 2.90 2.1-3.4 cm Pulmonary Veins Pulm Vein S/D 1.10 Pulmonary Valve PV Pk Demar: 0.83 Peak PV Grad: 3.00 Updated in Other Vendor System with Status of Final Sherwin Fontaine MD electronically signed on 07/26/2025 8:39:35 PM with status of Final
--- OUTSIDE RECORDS SUMMARY | 2025-07-24 09:17 | XMS_ITS | Clinical Summary ---
Author Organization [address] [facility] Address [address] [place] [address] Phone Care Team Providers Care Manager Oracle Database Name Role Phone Waldemar Mauro MD Primary Care Provider [phone] Allergies Active Allergy Reactions Criticality Noted Date [...] Description 05/05/2025 1:00 PM EDT Ancillary Procedure [facility] [address] [address] Other forms of dyspnea from Last 3 Months Social History Tobacco [...] Description 07/29/2025 8:00 AM EDT Ancillary Procedure [facility] - [address] [place] [address] Health Maintenance Due Date Last Done Comments Colorectal Cancer Screening: Colonoscopy 1963 Pneumococcal Vaccine: 50+ Years (1 of 2 - PCV) 1982 Cervical Cancer Screening: Pap Smear 1984 RSV Immunization Adult Patients (1 - Risk 50-74 years 1-dose series) 2013 Zoster Vaccines (1 of 2) 2013 Depression Screening 10/08/2024 Cholesterol Screening (Lipid Panel) 04/17/2025 HIV Screening 04/17/2025 Hepatitis C Screening [...] Scores: SDS Score: 1 Percentage Abnormal: 1.47% us Waldemar Mauro MD CV STRESS PROCEDURES Final Res ult from Last 3 Months Insurance [facility] Care Teams Manager Oracle Database Relationship Specialty Start Date End Date Waldemar Mauro MD [address] [phone] PCP - General Family Medicine 04/15/25
--- OUTSIDE RECORDS SUMMARY | 2025-07-24 09:18 | XMS_ITS | Data Portability ---
Author Organization [facility], Main Office Address [address] [facility] [address] [address] [place] [id number] Care Team Providers Care Scientific Programmer Analyst Name Role Phone STACY CAMPOS Resort Desk Clerk LYN WEI Electric Lineman [phone] KRISS MOTT Primary Care Provider LYN LOPEZ Vascular Surgeon MILKA SNOW Tool Planer Set Up Operator BIJAN MARTINEZ Cavity Pump Operator [facility] [employer] (ALLREFERRALS) Orthopedic Surgeon Assessment Encounter Date Assessment Date Assessment LastModified by Organization Details LastModified Time 03/16/2025 03/16/2025 Discussed with patient the signs/symptoms warranted for a return to office visit and/or an ER visit. Patient understood and agreed with the plan. [email or web address] Not available 03/16/2025 13:44:24 04/07/2025 04/07/2025 1. EKG Findings: -Today's EKG shows borderline first-degree AV block and possible incomplete right bundle branch block (RBBB). -While these are nonspecific, they may be medication-related , particularly due to aripiprazole. -EKG will be faxed to her psychiatrist for review to assess for potential conduction effects of psychotropic medication and determine if dose adjustment is needed. 2. Cardiac Evaluation: -Ordered a transthoracic echocardiogram (TTE) to evaluate for structural heart disease, such as left ventricular dysfunction, valvular abnormalities, or pulmonary hypertension. -Exercise stress test also ordered to assess for ischemic heart disease given exertional symptoms and T wave findings. -Patient educated on red flag symptoms (e.g., chest pain, syncope, palpitations, or worsening dyspnea) and instructed to seek emergent care if they occur. 3. Follow-Up: -Plan telehealth follow-up in 3 months to review echocardiogram and stress test results and reassess symptom progression. 4. Contingency Plan (if Cardiac Workup is Negative): -If cardiac evaluation is unrevealing, will expand workup to include non-cardiac causes, such as pulmonary or deconditioning-rel ated etiologies. -At that point, consider chest X-ray and pulmonary function testing (PFTs). [email or web address] Not available 04/07/2025 12:59:08 05/08/2025 05/08/2025 Right Shoulder Pain: -Physical therapy discontinued due to pain and limited ROM. -Order MRI of the right shoulder to further evaluate etiology. X-ray did not suggest accute finding. Cardiac Evaluation: -Nuclear medicine stress test showed mild reversible defect. -Order coronary calcium score. -Start rosuvastatin 20 mg daily for cardioprotective measures. Repeat lipid, LFT 2 months after. -Continue aspirin 81 mg daily. -Physical activity as tolerated, monitor for symptoms. -Cardiology referral already made. Follow-Up: -Follow-up after MRI results to determine next steps for shoulder management. -Monitor cardiac workup results and adjust therapy as indicated. [email or web address] Not available 05/10/2025 15:22:27 07/13/2025 07/13/2025 Right Rotator Cu ff Tendinopathy / Planned Surgical Repair -Surgery scheduled per orthopedic recommendation. -Continue to monitor pain and function preoperatively. -Requested orthopedic records for review and inclusion in chart. -Will review operative plan and postoperative expectations once documentation is received. Cardiac Evaluation / Risk Assessment -Continue aspirin and statin at current doses per cardiology guidance. -CTA with contrast and echocardiogram as recommended and ordered by materials analyst. -Follow up with cardiology for ongoing management. Follow-Up -Follow-up as scheduled. Await and review orthopedic and cardiology reports once available. This service was provided using telemedicine ([employer]) . The patient consented and was seen through synchronous audio and video technology. If audio only connection was used, the provider used telephone communication. Patient was located at home in the [facility]. Provider was located in the office. No other persons participated in the telemedicine visit except for the patient unless otherwise indicated here. Total time of visit was 12 minutes. [email or web address] Not available 07/13/2025 18:31:19 Plan of Treatment Reminders Order Date Submit Date Provider Last Modified By Organization Details Last Modified Time Details Appointments None recorded. Lab TSH + free T4, serum 2024 025 SAMARA [facility] (Centralized Electronic Ordering - All Locations), Patient Can Go To The Location Of Their Choice, 08:07:00 thyroperox idase Ab, serum 2024 025 SAMARA [facility] (Centralized Electronic Ordering - All Locations), Patient Can Go To The Location Of Their Choice, 08:07:03 urinalysis complete, reflex culture 2024 025 SAMARA [facility] (Centralized Electronic Ordering - All Locations), Patient Can Go To The Location Of Their Choice, 08:07:01 cytology, urine 2024 025 SAMARA [facility] (Centralized Electronic Ordering - All Locations), Patient Can Go To The Location Of Their Choice, 13:27:39 lipid panel, serum 2024 SAMARA [facility], [address], [address], 08:07:02 HbA1c (hemoglobi n A1c), blood 2024 025 SAMARA [facility] (Centralized Electronic Ordering - All Locations), Patient Can Go To The Location Of Their Choice, 08:07:02 CBC w/ auto diff 2024 025 SAMARA [facility] (Centralized Electronic Ordering - All Locations), Patient Can Go To The Location Of Their Choice, 08:07:00 Referral physical therapist referral - right shoulder pain x1 month. suspect shoulder impingemen t from repetitive movement of rowing. 2024 025 ATHENA[facility]X [facility], [address] [facility], [place], [address], 14:29:40 Procedures None recorded. Surgeries None recorded. Imaging CT, coronary calcium score - self pay. 2024 025 [facility], [address], [address], [place], [address], 5 09:57:54 MRI, shoulder, w/o contrast 2024 025 [facility], [address], [address], [place], [address], 5 08:39:17 US, echocardio gram 2024 025 eugene [facility] (Outt Non-Invasive Cardiology Scheduling), [facility] [place], [address], 13:26:38 electrocar diogram 2024 Basim malagon In-Office Order, Internal Use Only DO Not Attach Compendium DO Not Attach Compendium, Do Not Delete/merge, [id number] 5 12:25:23 exercise stress test 2024 025 eugene In-Office Order, Internal Use Only DO Not Attach Compendium DO Not Attach Compendium, Do Not Delete/merge, [id number] 13:27:00 US, breast, bilateral - To be done with Mammo 2024 025 eugene [facility], [address] [place], [address], 5 13:08:15 MAMMO, screening, bilateral - Perform Diagnostic Mammogram and Breast Ultrasound if needed / Perform Ultrasound Guided Aspiration and/or Breast Biopsy if warranted 2024 025 e[facility]ene [facility], [address] [place], [address], 5 13:08:03 XR, shoulder, 2 or more view - right shoulder pain x1 month 2024 025 [facility], [address], [place], [address], 14:57:46 Medication Orders None recorded. Patient TargetsNo targets recorded. Patient Instructions Encounter Date Encounter Id Patient Instructions Last Modified By Organization Details Last Modified Time 03/23/2025 [id number] blood in the urine: care instructions [email or web address] Not available 03/23/2025 13:27:23 well visit, wome n 48 to 63: care instructions [email or web address] Not available 03/23/2025 13:27:22 medical record request* [email or web address] Not available 03/23/2025 13:03:36 prediabetes: car e instructions [email or web address] Not available 03/23/2025 13:27:23 04/07/2025 [id number] blood in the urine: care instructions [email or web address] Not available 04/07/2025 12:25:23 heart blocks: care instructions [email or web address] Not available 04/07/2025 12:59:19 05/08/2025 [id number] high cholesterol : care instructions [email or web address] Not available 05/08/2025 14:19:55 07/13/2025 [id number] medical record request* [email or web address] Not available 07/14/2025 09:09:40 high cholesterol : care instructions [email or web address] Not available 07/13/2025 18:31:19 Reason for Referral Physical Therapist Referral for Pain of right shoulder region right shoulder pain x1 month. suspect shoulder impingement from repetitive movement of rowing. Referring Physician: Yana Strickland, Family Medicine, Encounter Date: 03/16/2025 Results Created Date Observation Date Name Description Value Unit Range Abnormal Flag Note LastModifiedBy Organization Detail LastModifiedTime 03/26/2003/27/2025 TSH+F REE T4 TSH 4.310 uIU/m L 0.450- 4.500 normal Not Available [facility] ([facility]) [address] [facility], [place], [address], 03/28/2025 08:07:00 03/26/20 25 03/27/2025 TSH+F REE T4 T4,free(dire ct) 1.17 NG/dL 0.82-1 .77 normal Not Available [facility] ([facility]) [address] [place], [address], 03/28/2025 08:07:00 03/26/20 25 03/27/2025 CBC WITH DIFFE RENTI AL/PL ATELE T WBC 4.5 x10e3 /uL 3.4-10 .8 normal Not Available [facility] ([facility]) [address] [place], [address], 03/28/2025 08:07:00 03/26/20 25 03/27/2025 CBC WITH DIFFE RENTI AL/PL ATELE T RBC 5.49 x10e6 /uL 3.77-5 .28 above high normal Not Available [facility] ([facility]) [address] [place], [address], 03/28/2025 08:07:00 03/26/20 25 03/27/2025 CBC WITH DIFFE RENTI AL/PL ATELE T hemoglobin 10.8 g/dL 11.1-1 5.9 below low normal Not Available [facility] ([facility]) [address] [place], [address], 03/28/2025 08:07:00 03/26/20 25 03/27/2025 CBC WITH DIFFE RENTI AL/PL ATELE T hematocrit 39.2 % 34.0-4 6.6 normal Not Available [facility] ([facility]) [address] [place], [address], 03/28/2025 08:07:00 03/26/20 25 03/27/2025 CBC WITH DIFFE RENTI AL/PL ATELE T MCV 71 fL 79-97 below low normal Not Available [facility] ([facility]) [address] [place], [address], 03/28/2025 08:07:00 03/26/20 25 03/27/2025 CBC WITH DIFFE RENTI AL/PL ATELE T MCH 19.7 pg 26.6-3 3.0 below low normal Not Available [facility] ([facility]) [address] [place], [address], 03/28/2025 08:07:00 03/26/20 25 03/27/2025 CBC WITH DIFFE RENTI AL/PL ATELE T MCHC 27.6 g/dL 31.5-3 5.7 below low normal Not Available [facility] ([facility]) [address] [place], [address], 03/28/2025 08:07:00 03/26/20 25 03/27/2025 CBC WITH DIFFE RENTI AL/PL ATELE T RDW 15.6 % 11.7-1 5.4 above high normal Not Available [facility] ([facility]) [address] [place], [address], 03/28/2025 08:07:00 03/26/20 25 03/27/2025 CBC WITH DIFFE RENTI AL/PL ATELE T platelets 201 x10e3 /uL 150-45 0 normal Not Available [facility] ([facility]) [address] [place], [address], 03/28/2025 08:07:00 03/26/20 25 03/27/2025 CBC WITH DIFFE RENTI AL/PL ATELE T neutrophils 57 % not estab. normal Not Available [facility] ([facility]) [address] [place], [address], 03/28/2025 08:07:00 03/26/20 25 03/27/2025 CBC WITH DIFFE RENTI AL/PL ATELE T lymphs 28 % not estab. normal Not Available [facility] ([facility]) [address] [place], [address], 03/28/2025 08:07:00 03/26/20 25 03/27/2025 CBC WITH DIFFE RENTI AL/PL ATELE T monocytes 8 % not estab. normal Not Available [facility] ([facility]) [address] [place], [address], 03/28/2025 08:07:00 03/26/20 25 03/27/2025 CBC WITH DIFFE RENTI AL/PL ATELE T eos 6 % not estab. normal Not Available [facility] ([facility]) [address] [place], [address], 03/28/2025 08:07:00 03/26/20 25 03/27/2025 CBC WITH DIFFE RENTI AL/PL ATELE T basos 1 % not estab. normal Not Available [facility] ([facility]) [address] [facility], [place], [address], 03/28/2025 08:07:00 03/26/20 25 03/27/2025 CBC WITH DIFFE RENTI AL/PL ATELE T immature cells DIE FITTER Not Available [facility] ([facility]) [address] [place], [address], 03/28/2025 08:07:00 03/26/20 25 03/27/2025 CBC WITH DIFFE RENTI AL/PL ATELE T neutrophils (absolute) 2.5 x10e3 /uL 1.4-7. 0 normal Not Available [facility] ([facility]) [address] [place], [address], 03/28/2025 08:07:00 03/26/20 25 03/27/2025 CBC WITH DIFFE RENTI AL/PL ATELE T lymphs (absolute) 1.2 x10e3 /uL 0.7-3. 1 normal Not Available [facility] ([facility]) [address] [place], [address], 03/28/2025 08:07:00 03/26/20 25 03/27/2025 CBC WITH DIFFE RENTI AL/PL ATELE T monocytes(ab solute) 0.4 x10e3 /uL 0.1-0. 9 normal Not Available [facility] ([facility]) [address] [facility], [place], [address], 03/28/2025 08:07:00 03/26/20 25 03/27/2025 CBC WITH DIFFE RENTI AL/PL ATELE T eos (absolute) 0.3 x10e3 /uL 0.0-0. 4 normal Not Available [facility] ([facility]) [address] [facility], [place], [address], 03/28/2025 08:07:00 03/26/20 25 03/27/2025 CBC WITH DIFFE RENTI AL/PL ATELE T baso (absolute) 0.1 x10e3 /uL 0.0-0. 2 normal Not Available [facility] ([facility]) [address] [facility], [place], [address], 03/28/2025 08:07:00 03/26/20 25 03/27/2025 CBC WITH DIFFE RENTI AL/PL ATELE T immature granulocytes 0 % not estab. Not Available [facility] ([facility]) [address] [place], [address], 03/28/2025 08:07:00 03/26/20 25 03/27/2025 CBC WITH DIFFE RENTI AL/PL ATELE T immature grans (abs) 0.0 x10e3 /uL 0.0-0. 1 Not Available [facility] ([facility]) [address] [place], [address], 03/28/2025 08:07:00 03/26/20 25 03/27/2025 CBC WITH DIFFE RENTI AL/PL ATELE T NRBC DIE FITTER Not Available [facility] ([facility]) [address] [facility], [place], [address], 03/28/2025 08:07:00 03/26/20 25 03/27/2025 CBC WITH DIFFE RENTI AL/PL ATELE T hematology comments: DIE FITTER Not Available [facility] ([facility]) [address] [facility], [place], [address], 03/28/2025 08:07:00 03/26/20 25 03/27/2025 UA/M W/RFL X CULTU RE, ROUTI NE specific gravity 1.008 1.005- 1.030 normal Not Available [facility] ([facility]) [address] [facility], [place], [address], 03/28/2025 08:07:01 03/26/20 25 03/27/2025 UA/M W/RFL X CULTU RE, ROUTI NE pH 6.5 5.0-7. 5 normal Not Available [facility] ([facility]) [address] [facility], [place], [address], 03/28/2025 08:07:01 03/26/20 25 03/27/2025 UA/M W/RFL X CULTU RE, ROUTI NE urine-color Yellow yellow Not Available [facility] ([facility]) [address] [facility], [place], [address], 03/28/2025 08:07:01 03/26/20 25 03/27/2025 UA/M W/RFL X CULTU RE, ROUTI NE appearance Clear clear Not Available [facility] ([facility]) [address] [facility], [place], [address], 03/28/2025 08:07:01 03/26/20 25 03/27/2025 UA/M W/RFL X CULTU RE, ROUTI NE WBC esterase 1+ negati ve abnormal Not Available [facility] ([facility]) [address] [facility], [place], [address], 03/28/2025 08:07:01 03/26/20 25 03/27/2025 UA/M W/RFL X CULTU RE, ROUTI NE protein Negati ve negati ve/tra ce Not Available [facility] ([facility]) [address] [place], [address], 03/28/2025 08:07:01 03/26/20 25 03/27/2025 UA/M W/RFL X CULTU RE, ROUTI NE glucose Negati ve negati ve Not Available [facility] ([facility]) [address] [place], [address], 03/28/2025 08:07:01 03/26/20 25 03/27/2025 UA/M W/RFL X CULTU RE, ROUTI NE ketones Negati ve negati ve Not Available [facility] ([facility]) [address] [place], [address], 03/28/2025 08:07:01 03/26/20 25 03/27/2025 UA/M W/RFL X CULTU RE, ROUTI NE occult blood Negati ve negati ve Not Available [facility] ([facility]) [address] [place], [address], 03/28/2025 08:07:01 03/26/20 25 03/27/2025 UA/M W/RFL X CULTU RE, ROUTI NE bilirubin Negati ve negati ve Not Available [facility] ([facility]) [address] [place], [address], 03/28/2025 08:07:01 03/26/20 25 03/27/2025 UA/M W/RFL X CULTU RE, ROUTI NE urobilinogen ,semi-qn 0.2 mg/dL 0.2-1. 0 normal Not Available [facility] ([facility]) [address] [place], [address], 03/28/2025 08:07:01 03/26/20 25 03/27/2025 UA/M W/RFL X CULTU RE, ROUTI NE nitrite, urine Negati ve negati ve Not Available [facility] ([facility]) [address] [facility] [place], [address], 03/28/2025 08:07:01 03/26/20 25 03/27/2025 UA/M W/RFL X CULTU RE, ROUTI NE microscopic examination See below: Corinna villalpando was indic ated and was perfo rmed. Not Available [facility] ([facility]) [address] [facility], [place], [address], 03/28/2025 08:07:01 03/26/20 25 03/27/2025 UA/M W/RFL X CULTU RE, ROUTI NE WBC 0-5 /hpf 0 - 5 Not Available [facility] ([facility]) [address] [facility], [place], [address], 03/28/2025 08:07:01 03/26/20 25 03/27/2025 UA/M W/RFL X CULTU RE, ROUTI NE RBC None seen /hpf 0 - 2 Not Available [facility] ([facility]) [address] [facility], [place], [address], 03/28/2025 08:07:01 03/26/20 25 03/27/2025 UA/M W/RFL X CULTU RE, ROUTI NE epithelial cells (non renal) None seen /hpf 0 - 10 Not Available [facility] ([facility]) [address] [facility], [place], [address], 03/28/2025 08:07:01 03/26/20 25 03/27/2025 UA/M W/RFL X CULTU RE, ROUTI NE epithelial cells (renal) DIE FITTER Not Available [facility] ([facility]) [address] [facility], [place], [address], 03/28/2025 08:07:01 03/26/20 25 03/27/2025 UA/M W/RFL X CULTU RE, ROUTI NE casts None seen /lpf none seen Not Available [facility] ([facility]) [address] [facility], [place], [address], 03/28/2025 08:07:01 03/26/20 25 03/27/2025 UA/M W/RFL X CULTU RE, ROUTI NE cast type DIE FITTER Not Available [facility] ([facility]) [address] [facility], [place], [address], 03/28/2025 08:07:01 03/26/20 25 03/27/2025 UA/M W/RFL X CULTU RE, ROUTI NE crystals DIE FITTER Not Available [facility] ([facility]) [address] [facility], [place], [address], 03/28/2025 08:07:01 03/26/20 25 03/27/2025 UA/M W/RFL X CULTU RE, ROUTI NE crystal type DIE FITTER Not Available [facility] ([facility]) [address] [facility], [place], [address], 03/28/2025 08:07:01 03/26/20 25 03/27/2025 UA/M W/RFL X CULTU RE, ROUTI NE mucus threads DIE FITTER Not Available [facility] ([facility]) [address] [facility], [place], [address], 03/28/2025 08:07:01 03/26/20 25 03/27/2025 UA/M W/RFL X CULTU RE, ROUTI NE bacteria None seen none seen/f ew Not Available [facility] ([facility]) [address] [facility], [place], [address], 03/28/2025 08:07:01 03/26/20 25 03/27/2025 UA/M W/RFL X CULTU RE, ROUTI NE yeast DIE FITTER Not Available [facility] ([facility]) [address] [facility], [place], [address], 03/28/2025 08:07:01 03/26/20 25 03/27/2025 UA/M W/RFL X CULTU RE, ROUTI NE trichomonas DIE FITTER Not Available [facility] ([facility]) [address] [facility], [place], [address], 03/28/2025 08:07:01 03/26/20 25 03/27/2025 UA/M W/RFL X CULTU RE, ROUTI NE comment DIE FITTER Not Available [facility] ([facility]) [address] [facility], [place], [address], 03/28/2025 08:07:01 03/26/20 25 03/27/2025 UA/M W/RFL X CULTU RE, ROUTI NE microscopic examination DIE FITTER Not Available [facility] ([facility]) [address] [facility], [place], [address], 03/28/2025 08:07:01 03/26/20 25 03/27/2025 UA/M W/RFL X CULTU RE, ROUTI NE urinalysis reflex Commen t This speci men has refle xed to a Urine Cultu re. Not Available [facility] ([facility]) [address] [facility], [place], [address], 03/28/2025 08:07:01 03/26/20 25 03/28/2025 UA/M W/RFL X CULTU RE, ROUTI NE urine culture, routine Final report Not Available [facility] ([facility]) [address] [facility], [place], [address], 03/28/2025 08:07:01 03/26/20 25 03/28/2025 UA/M W/RFL X CULTU RE, ROUTI NE result 1 No growth Not Available [facility] ([facility]) [address] [place], [address], 03/28/2025 08:07:01 03/26/20 25 03/26/2025 LIPID PANEL cholesterol, total 190 mg/dL 100-19 9 normal Not Available [facility] ([facility]) [address] [facility] [place], [address], 03/28/2025 08:07:01 03/26/20 25 03/26/2025 LIPID PANEL triglyceride s 62 mg/dL 0-149 normal Not Available [facility] ([facility]) [address] [place], [address], 03/28/2025 08:07:01 03/26/20 25 03/26/2025 LIPID PANEL HDL cholesterol 61 mg/dL >39 normal Not Available [facility] ([facility]) [address] [place], [address], 03/28/2025 08:07:01 03/26/20 25 03/26/2025 LIPID PANEL VLDL cholesterol zaid 12 mg/dL 5-40 Not Available [facility] ([facility]) [address] [place], [address], 03/28/2025 08:07:01 03/26/20 25 03/26/2025 LIPID PANEL LDL chol calc ([facility]) 117 mg/dL 0-99 above high normal Not Available [facility] ([facility]) [address] [place], [address], 03/28/2025 08:07:01 03/26/20 25 03/26/2025 LIPID PANEL LDL calc comment: DIE FITTER Not Available [facility] ([facility]) [address] [place], [address], 03/28/2025 08:07:01 03/26/20 25 03/27/2025 HEMOG LOBIN A1C hemoglobin A1C 5.4 % 4.8-5. 6 normal Predi abete s: 5.7 - 6.4 Diabe neeraj: >6.4 Glyce laura contr ol for adult s with diabe neerja: <7.0 Not Available [facility] ([facility]) [address] [place], [address], 03/28/2025 08:07:02 03/26/20 25 03/27/2025 THYRO ID ANTIB ODIES thyroid peroxidase (tpo) Ab 137 IU/mL 0-34 above high normal Not Available [facility] ([facility]) [address] [facility], [place], [address], 03/28/2025 08:07:03 03/26/20 25 03/27/2025 THYRO ID ANTIB ODIES thyroglobuli n antibody <1.0 IU/mL 0.0-0. 9 Thyro globu gaurav Antib jose measu red by Yarely Grace er Metho dolog y It shoul d be noted that the prese nce of thyro globu gaurav antib odies may not be patho genic nor diagn ostic , espec ially at very low level s. The assay martha actur er has found that four perce nt of indiv idual s witho ut evide nce of thyro id disea se or autoi mmuni ty will have posit amalia TgAb level s up to 4 IU/mL . Not Available [facility] ([facility]) [address] [facility], [place], [address], 03/28/2025 08:07:03 03/26/20 25 03/30/2025 ANGELITA EN AUTHO RIZAT ION written authorizatio n [employer] en Autho rizat ion Recei leia. Autho rizat ion recei leia from [facility] for Link Reque st on 03-30 Logge d by January amaya Anh Not Available [facility] ([facility]) [address] [facility], [place], [address], 03/30/2025 10:05:39 03/26/20 25 03/26/2025 TICK- BORNE DISEA SE AB PROFI LE result comments: Commen t Antib jose titer s may be negat amalia in the first 7-10 days of illne ss. A four- fold rise in IgG antib jose titer s for Babes ia micro ti, Anapl asma phago cytop hilum , and/o r Ehrli brittney chaff eensi s in paire d sampl es (acut e and conva lesce nt) suppo rts the diagn osis of babes iosis , anapl asmos is, and/o r ehrli chios is, respe ctive ly. Not Available [facility] ([facility]) [address] [facility] [place], [address], 04/01/2025 18:05:46 03/26/20 25 03/27/2025 TICK- BORNE DISEA SE AB PROFI LE lyme total antibody ousmane Negati ve negati ve Lyme antib odies not detec louie. Refle x testi ng is not indic ated. No labor atory evide nce of infec tion with B. burgd orfer i (Lyme disea se). Negat amalia resul ts may occur in patie nts recen tly infec louie (less than or equal to 14 days) with B. burgd orfer i. If recen t infec tion is suspe cted, repea t testi ng on a new sampl e colle cted in 7 to 14 days is recom nara d. Not Available [facility] ([facility]) [address] [facility], [place], [address], 04/01/2025 18:05:46 03/26/20 25 03/30/2025 TICK- BORNE DISEA SE AB PROFI LE babesia microti IgG <1:10 neg:<1 :10 Not Available [facility] ([facility]) [address] [facility], [place], [address], 04/01/2025 18:05:46 03/26/20 25 03/31/2025 TICK- BORNE DISEA SE AB PROFI LE E. chaffeensis IgG Negati ve neg:<1 :64 Not Available [facility] ([facility]) [address] [facility], [place], [address], 04/01/2025 18:05:46 03/26/20 25 04/01/2025 TICK- BORNE DISEA SE AB PROFI LE A. phagocytophi lum IgG Negati ve neg:<1 :64 Not Available [facility] ([facility]) [address] [facility], [place], [address], 04/01/2025 18:05:46 03/16/2003/16/2025 XR, shoul donnell, 2 or more view No observ ation record ed. [facility] [address], [place], [address], 03/16/2025 16:03:03 03/16/20 25 03/16/2025 XR, shoul donnell, 2 or more view Right should er, 2 views Reason : pain in right should er COMPAR YAMILETH: None. FINDIN GS: No fractu re or disloc ation. No arthri tic change of the glenoh umeral joint. Normal AC joint and portio ns of the clavic le includ ed on the exam. No calcif icatio n of the rotato r cuff. IMPRES LUIS ANGEL: No acute osseou s abnorm ality is seen involv ing the right should er. WSN: [id number] Orderi ng Physic tayler: Yana Strickland Y Dictat ed By: Duncan martinez MD, Brandon Alejandro Dictat ed Date/T luann: 2:51 pm Review ed By: Duncan martinez MD, Brandon Alejandro Signed By: Duncan martinez MD, Brandon Alejandro Signed Date/T luann: 2:51 pm Transc ribed By: MCKAY Transc ribed Date/T luann: 2:44 pm Patien t Class: Outpat ient [facility] (Outpt Imaging) [address], [place], [address], 03/16/2025 16:03:03 03/29/2003/29/2025 MAMMO tomy digit al, bilat eral No observ ation record ed. [facility] [address], [place], [address], 03/30/2025 11:14:25 03/29/20 25 03/27/2025 MAMMO , scree lizbeth, digit al, bilat eral PROCED URE: MM Digita l Mammo Screen ing INDICA TION: Screen ing for breast cancer . No known palpab le abnorm alitie s. Histor y of breast cancer in mother at age 61 and patern al aunt at age 40. COMPAR YAMILETH: Priors dating back to 018 TECHNI QUE: Full-f ield digita l CC and MLO 3D tomosy nthesi s images of both breast s were acquir ed. Comput er-aid ed detect ion (CAD) was utiliz ed in the interp retati on of this study. DENSIT Y: There are scatte red areas of fibrog landul ar densit y. FINDIN GS: No suspic ious masses , suspic ious microc alcifi cation s, or areas of wally ectura l distor tion are seen in either breast to sugges t malign tanisha. Biopsy marker clip is presen t in the right upper outer quadra nt. IMPRES LUIS ANGEL: No mammog raphic eviden ce of malign tanisha. RECOMM ENDATI ON: Annual mammog raphic screen ing BI-RAD S: 2 (Benig n) Lay letter mailed to zahra petty WSN: [id number] Orderi ng Physic tayler: Srinivasan Mott Dictat ed By: David Jenkins MD Dictat ed Date/T luann: 12:52 pm Review ed By: David Jenkins MD Signed By: David Jenkins MD Signed Date/T luann: 12:52 pm Transc ribed By: MCKAY Transc riptio n Date/T luann: 12:50 pm Birads : Patiflo t Class: Outpat ient [email or web address] (Outpt Imaging) [address] , [place], [address], 03/30/2025 15:26:36 04/06/20 25 04/07/2025 elect gab diogr am No observ ation record ed. [email or web address] In-Office Order Internal Use Only DO Not Attach Compendium DO Not Attach Compendium, Do Not Delete/merge, [id number] 04/07/2025 12:26:52 04/07/20 elect gab demarco am No observ ation record ed. [email or web address] In-Office Order Internal Use Only DO Not Attach Compendium DO Not Attach Compendium, Do Not Delete/merge, [id number] 04/07/2025 12:22:52 05/07/20 25 05/05/2025 nm stres s test with myoca rdial perfu luis angel No observ ation record ed. [facility] [address], [place], [address], 05/20/2025 12:52:35 05/08/2005/05/2025 exerc ise stres s test No observ ation record ed. [email or web address] In-Office Order Internal Use Only DO Not Attach Compendium DO Not Attach Compendium, Do Not Delete/merge, [id number] 05/11/2025 08:48:37 05/20/2005/19/2025 MRI, shoul donnell, w/o contr ast No observ ation record ed. [facility] ([facility]) [address], [place], [address], 05/20/2025 12:52:35 05/20/2005/19/2025 CT, coron mariza calci um score No observ ation record ed. [facility] ([facility]) [address], [place], [address], 05/20/2025 12:52:35 Result Notes Documentation Provider Name and Address Organization Details Recorded Time Xr, Shoulder, 2 Or More View : Right shoulder, 2 views Reason: pain in right shoulder COMPARISON: None. FINDINGS: No fracture or dislocation. No arthritic change of the glenohumeral joint. Normal AC joint and portions of the clavicle included on the exam. No calcification of the rotator cuff. IMPRESSION: No acute osseous abnormality is seen involving the right shoulder. WSN: [id number] Ordering Physician: Yana Strickland Dictated By: Brandon Payne MD, V Dictated Date/Time: 03/16/25 2:51 pm Reviewed By: Brandon Payne MD, V Signed By: Brandon Payne MD, V Signed Date/Time: 03/16/25 2:51 pm Transcribed By: MCKAY Transcribed Date/Time: 03/16/25 2:44 pm Patient Class: Outpatient [facility] [address], [place], [address], [facility] 03/16/2025 15:25:56 Mammo, Screening, Digital, Bilateral : PROCEDURE: MM Digital Mammo Screening INDICATION: Screening for breast cancer. No known palpable abnormalities. History of breast cancer in mother at age 61 and paternal aunt at age 40. COMPARISON: Priors dating back to 06/06/2018 TECHNIQUE: Full-field digital CC and MLO 3D tomosynthesis images of both breasts were acquired. Computer-aided detection (CAD) was utilized in the interpretation of this study. DENSITY: There are scattered areas of fibroglandular density. FINDINGS: No suspicious masses, suspicious microcalcifications, or areas of architectural distortion are seen in either breast to suggest malignancy. Biopsy marker clip is present in the right upper outer quadrant. IMPRESSION: No mammographic evidence of malignancy. RECOMMENDATION: Annual mammographic screening BI-RADS: 2 (Benign) Lay letter mailed to patient WSN: [id number] Ordering Physician: Kriss Mott Dictated By: Ayesha Jenkins MD Dictated Date/Time: 03/29/25 12:52 pm Reviewed By: Ayesha Jenkins MD Signed By: Ayesha Jenkins MD Signed Date/Time: 03/29/25 12:52 pm Transcribed By: MCKAY [employer] Date/Time: 03/29/25 12:50 pm Birads: Patient Class: Outpatient [facility] 03/30/2025 15:26:36 Problems Name Problem SNOMED Code Status Onset Date Resolution Date Notes Provider Name and Address Organization Details Recorded Time Lacerati on of finger 585757789 Completed 02/12/2017 Erich Connor MD [address], [place], [address] , [facility] 7 21:33:57 Diarrhea 17251752 Completed 10/10/2016 JOLANTA Nicholson, [facility] 7 09:49:19 Fatigue 01244687 Completed 10/10/2016 JOLANTA Nicholson, [facility] 7 09:49:23 Insomnia 888017776 Completed 11/20/2023 Kriss Mott MD [address] [facility] [address], [place], [address] , [facility] 4 15:36:49 Major depressi ve disorder 439629337 Completed 11/20/2023 Kriss Mott MD [address] [address], [place], [address] , [facility] 4 15:36:42 Tick bite 85981286 Completed 02/12/2017 Erich Connor MD [address] [address], [place], [address] , [facility] 7 21:34:11 Cutaneou s hypersen sitivity 34792074 Completed 11/20/2023 Kriss Mott MD [address] [address], [place], [address] , [facility] 4 15:36:11 Hyperlip idemia 90130703 Active Not Available [facility] 2 13:33:46 Lyme disease 91868616 Completed 02/12/2017 Erich Connor MD [address] [facility] [address], [place], [address] , [facility] 7 21:33:44 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 stacey hominis 691850533 Completed 02/12/2017 Erich Connor MD [address] [address], [place], [address] , [facility] 7 21:34:06 Adenomat ous polyp of colon 416856281 Completed 11/20/2023 Kriss Mott MD [address] [facility] [address], [facility] [place], [address] , [facility] 4 15:47:43 Tubular adenomat ous polyp of colon 648120761 Active 2012 Not Available [facility] 2 13:33:46 Allergic rhinitis 11742347 Completed 201205/18/2014 IMPRESSI ON: CALL IF NOT IMPROVIN G HER SINUS SXS.; RECORDED 05/09/20 13 1:23PM BY ALMA YEBOAH MA, ANNOTATI ON/ADDEN DUM JOLANTA Nicholson, [facility] 6 13:51:11 Allergic rhinitis 14402015 Completed 201204/21/2014 IMPRESSI ON: CALL IF NOT IMPROVIN G HER SINUS SXS.; RECORDED 05/09/20 13 1:23PM BY ALMA YEBOAH MA, ANNOTATI ON/ADDEN DUM JOLANTA Nicholson, [facility] 6 13:51:11 Adult health examinat christi Completed 201205/18/2014 IMPRESSI ON: SHE ALREADY HAS SET UP AN APPT FOR A COLONOSC OPY. SHE IS UP TO DATE ON HER MAMMO. HER HOUSEKEEPING ATTENDANT ORDERS THESE.; RECORDED 08/15/20 13 3:09PM BY SURESH PICKARD MA, MISTY ON/ADDEN DUM Not Available [facility] 4 05:23:24 Screenin g for malignan t neoplasm of colon Completed 201205/18/2014 RECORDED 08/15/20 13 3:09PM BY SURESH PICKARD MA, MISTY ON/ADDEN DUM Not Available [facility] 4 05:23:24 External hemorrho ids [id number] Completed 201205/18/2014 RECORDED 08/15/20 13 3:09PM BY SURESH PICKARD MA, MISTY ON/ADDEN DUM Not Available [facility] 4 05:23:24 Dermatop hytosis of the perianal area Completed 201205/18/2014 RECORDED 08/15/20 13 3:09PM BY SURESH PICKARD MA, ANNOTATI ON/ADDEN DUM Not Available [facility] 4 05:23:25 Adult health examinat ion Completed 201204/21/2014 IMPRESSI ON: SHE ALREADY HAS SET UP AN APPT FOR A COLONOSC OPY. SHE IS UP TO DATE ON HER MAMMO. HER HOUSEKEEPING ATTENDANT ORDERS THESE.; RECORDED 08/15/20 13 3:09PM BY SURESH PICKARD MA, ANNOTATI ON/ADDEN DUM Not Available [facility] 4 14:03:02 Screenin g for malignan t neoplasm of colon Completed 201204/21/2014 RECORDED 08/15/20 13 3:09PM BY SURESH PICKARD MA, FABIANATI ON/ADDEN DUM Not Available [facility] 4 14:03:02 External hemorrho ids [id number] Completed 201204/21/2014 RECORDED 08/15/20 13 3:09PM BY SURESH PICKARD MA, ANNOTATI ON/ADDEN DUM Not Available [facility] 4 14:03:02 Laborato ry procedur e performe d [id number] Completed 201204/21/2014 RECORDED 08/15/20 13 3:09PM BY SURESH PICKARD MA, ANNOTATI ON/ADDEN DUM JOLANTA Nicholson MA - [facility] 6 13:50:38 Dermatop hytosis of the perianal area Completed 201204/21/2014 RECORDED 08/15/20 13 3:09PM BY SURESH PICKARD MA, ANNOTATI ON/ADDEN DUM Not Available [facility] 4 14:03:03 Mammogra phy abnormal 030838674 Completed 201205/18/2014 RECORDED 09/17/20 13 2:18PM BY ALMA I COLE- EDILIA, MA, ANNOTATI ON/ADDEN DUM Not Available [facility] 4 05:23:24 Screenin g for malignan t neoplasm of breast Completed 201205/18/2014 RECORDED 09/17/20 13 2:18PM BY ALMA YEBOAH MA, ANNOTATI ON/ADDEN DUM Not Available [facility] 4 05:23:24 Patient status finding [id number] Completed 201205/18/2014 RECORDED 09/17/20 13 2:18PM BY ALMA YEBOAH MA, ANNOTATI ON/ADDEN DUM JOLANTA Nicholson [facility] 6 13:50:28 Mammogra phy abnormal [id number] Completed 201204/21/2014 RECORDED 09/17/20 13 2:18PM BY ALMA YEBOAH MA, ANNOTATI ON/ADDEN DUM Not Available [facility] 4 14:03:02 Screenin g for malignan t neoplasm of breast Completed 201204/21/2014 RECORDED 09/17/20 13 2:18PM BY ALMA YEBOAH MA, ANNOTATI ON/ADDEN DUM Not Available [facility] 4 14:03:02 Patient status finding [id number] Completed 201204/21/2014 RECORDED 09/17/20 13 2:18PM BY ALMA YEBOAH MA, ANNOTATI ON/ADDEN DUM JOLANTA Nicholson [facility] 6 13:50:28 Acute upper respirat ory infectio n 28613763 Completed 201210/10/2016 JOLANTA Nicholson [facility] 7 09:49:15 Acute sinusiti s 11899075 Completed 201210/10/2016 JOLANTA Nicholson [facility] 7 09:49:08 Laborato ry procedur e performe d 585097074 Completed 201205/31/2016 JOLANTA Nicholson, [facility] 6 13:50:38 Screenin g for malignan t neoplasm of cervix Completed 201305/31/2016 JOLANTA Nicholson, [facility] 6 13:50:44 Screenin g for malignan t neoplasm of cervix Completed 201305/18/2014 RECORDED 04/21/20 14 8:57AM BY ALAM YEBOAH MA, ANNOTATI ON/ADDEN DUM JOLANTA Nicholson, [facility] 6 13:50:44 Malaise and fatigue 547763595 Completed 201302/12/2017 Erich Connor MD [address], [place], [address] , [facility] 7 21:33:51 Laborato ry procedur e performe d 489849781 Completed 201305/18/2014 RECORDED 04/21/20 14 8:57AM BY ALMA YEBOAH MA, ANNOTATI ON/ADDEN DUM JOLANTA Nicholson, [facility] 6 13:50:38 Female genital organ symptoms 596022003 Completed 201302/12/2017 Erich Connor MD [address], [place], [address] , [facility] 7 21:34:00 Acute sinusiti s 28148175 Completed 201305/18/2014 IMPRESSI ON: PT CALLED, NOT BETTER SEEN WED; RECORDED 04/21/20 14 8:57AM BY ALMA YEBOAH MA, ANNOTATI ON/ADDEN DUM JOLANTA Nicholson, [facility] 7 09:49:08 Acute upper respirat ory infectio n 56375966 Completed 201305/18/2014 IMPRESSI ON: VIRAL URI. SINUS RINSE. CALL ON SUNDAY IF NOT IMPROVIN G AND CAN CALL [facility] FOR HER; RECORDED 04/21/20 14 8:57AM BY ALMA YEBOAH MA, ANNOTATI ON/ADDEN DUM [facility]ner [facility] 7 09:49:15 Pain of joint 68469423 Completed 201302/12/2017 Erich Connor MD [address], [place], [address] , [facility] 7 21:34:15 Current tear of medial cartilag e AND/OR meniscus of knee Completed 201311/20/2023 STORY: ACUTE INJURY TO RIGHT KNEE JUMPING AND TWISTING IN KARATE Kriss Mott MD [address], [place], [address] , [facility] 4 15:36:03 Cyst of ovary 43440513 Active 2013 Not Available [facility] 2 13:33:46 Allergic rhinitis 98796506 Active 2013 Not Available [facility] 2 13:33:46 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 2013 Not Available [facility] 2 13:33:47 Abnormal weight loss 382457610 Completed 201302/12/2017 Erich Connor MD [address], [place], [address] , [facility] 7 21:33:54 Biopsy of lesion of oral cavity Completed 201411/20/2023 Kriss Mott MD [address], [place], [address] , [facility] 4 15:36:19 Allergy to shrimp 708612827 Active 2016 Not Available [facility] 2 13:33:47 Subclini zaid hypothyr oidism 66587654 Completed 201903/28/2025 Kriss Mott MD [address], [place], [address] , [facility] 5 10:24:06 Venous varices 474684022 Active 2023 Fern Hester [facility] [address], [place], [address] , [facility] 4 15:23:58 Rupture of anterior cruciate ligament 363411073 Active 2023 STORY: ACUTE INJURY TO RIGHT KNEE JUMPING AND TWISTING IN KARATE Kriss Mott MD [address], [place], [address] , [facility] 4 15:35:58 Major depressi on in remissio n 95719686 Active 2023 Kriss Mott MD [address], [place], [address] , [facility] 4 15:36:39 Glaucoma 89486414 Active 2023 Kriss Mott MD [address], [place], [address] , [facility] 4 15:43:15 Generali zed anxiety disorder 46096153 Active 2023 Kriss Mott MD [address], [place], [address] , [facility] 4 10:55:20 Autoanti body level - finding 753091049 Active 2024 TPO detected Kriss Mott MD [address], [place], [address] , [facility] 5 10:24:16 Problem Notes None recorded. Procedures Surgical History Date Name Laterality Status Provider Name and Address Organization Details Recorded Time 05/05/20 25 Cardiovascular stress test completed Ashley Riveranett [facility] 05/11/2025 08:48:34 03/27/20 25 Most Recent Mammogram completed Summer Shine [facility] 03/30/2025 15:26:32 03/27/20 25 Mammogram Screening completed Summer Shine [facility] 03/30/2025 15:26:19 10/15/19 24 stripping of lower limb varicose veins completed Kriss Mott MD [address] [address], [place], [address], [facility] 11/20/2023 15:40:38 10/21/19 19 Date of Last Colonoscopy completed Gabby Lara [facility] 11/05/2018 11:01:49 10/21/19 19 Colonoscopy completed Gabby Lara [facility] 11/05/2018 11:01:43 07/17/20 18 Date of Last Pap Smear completed Alma cristobal [place] [facility] 10/24/2018 10:48:42 03/19/20 15 biopsy of lesion of oral cavity completed Alma cristobal [place] [facility] 10/24/2018 10:43:40 10/08/19 14 Anesth knee area surgery completed Alma cristobal [place] [facility] 02/09/2016 09:56:20 10/09/19 13 Orthopedic Surgery completed Alma cristobal MA [facility] 09/13/2020 10:18:44 Imaging Results None recorded. Procedure Notes None recorded. Medical Equipment None Reported. Allergies Allergen ID Allergen Name Allergen Category Reaction Reaction Severity Criticality Documentation Date Start Date Code Code System Note Provider Name and Address Organization Details Recorded Time 76200 shrimp allergeni c extract food anaphylax is Not available Not available 01/25/20172016 32702 2 RxNorm JOLANTA Garcia, [facility] 7 14:45:24 39155 shellfish derived food,medi cation anaphylax is Not available Not available 09/12/2018 JOLANTA Lerma, [facility] 8 10:09:21 05985 Iodinated contrast media (substanc e) medicatio n anaphylax is Not available Not available 12/19/2019 77620 2003 SNOMED due to aller gy to shrim p Alma Cole-JOLANTA Kramer, [facility] 0 13:18:43 Medications Name Sig Start Date Stop Date Status Note LastModified by Organization Details LastModified Time amoxicill in 500 mg capsule TAKE 1 CAPSULE BY MOUTH THREE TIMES A DAY FOR 7 DAYS 05/09 completed Not Available Not Available Not Available latanopro st 0.005 % eye drops INSTILL 1 DROP INTO BOTH EYES AT BEDTIME active Not Available Not Available No t Available oxcarbaze pine 150 mg tablet TAKE 1 TABLET BY MOUTH TWICE A DAY 07/31 completed Not Available Not Available Not Available prednison e 10 mg tablet TAKE 6 TABS DAILY X 4 DAYS,4 TABS X 4 DAYS,2 TABS X 4 DAYS THEN 1 TAB X 3 DAYS 05/09 completed Not Available Not Available Not Available doxycycli ne hyclate 100 mg capsule Take 1 capsule twice a day by oral route for 10 days. 07/18 completed Not Available Not Available Not Available azithromy susy 250 mg tablet TAKE 2 TABLETS BY MOUTH TODAY, THEN TAKE 1 TABLET DAILY FOR 4 DAYS 02/19 completed Not Available Not Available Not Available hydrocodo ne 5 mg-acetam inophen 325 mg tablet TAKE 1 TABLET BY MOUTH EVERY 6 HOURS NEEDED 02/19 completed Not Available Not Available Not Available Medrol (Samir) 4 mg tablets in a dose pack Take tapering dose over 6 days per instruct ions on package. 08/15 completed Not Available Not Available Not Available prednison e 20 mg tablet TAKE 1 TABLET 2 TIMES A DAY START 2 DAYS PRIOR TO CORONARY CTA INCLUDIN G ON THE DAY OF THE PROCEDUR E active Not Available Not Available No t Available Anucort-H C 25 mg supposito ry 2 TIMES PER DAY FOR 2 WEEKS 2012 active RECORDED 09/17/20 13 4:31PM BY SUZIE ERNST, OFFICE VISIT; Not Available Not Available Not Available permethri n 5 % topical cream APPLY (THOROUG HLY MASSAGE INTO SKIN FROM HEAD TO SOLES OF FEET) BY TOPICAL ROUTE ONCE LEAVE ON FOR 8-14 HR, THEN REMOVE BY THOROUGH WASHING 06/06 completed Not Available Not Available Not Available cyanocoba dee (vit B-12) 1,000 mcg tablet Take 1 tablet every day by oral route. active Not Available Not Available No t Available Vitamin C 500 mg chewable tablet Take 1 tablet every day by oral route. active Not Available Not Available No t Available aspirin 81 mg tablet,de layed release TAKE 1 TABLET BY MOUTH EVERY DAY active Not Available Not Available No t Available amoxicill in 875 mg tablet TAKE 1 TAB BY MOUTH TWICE A DAY X 4 DAYS, STARTING THE DAY AFTER SURGERY 12/30 completed Not Available Not Available Not Available famotidin e 20 mg tablet Take 1 tablet as needed by oral route as directed for [address] Stewart Not Available Not Available Not Available lorazepam 0.5 mg tablet TAKE 1 TABLET BY MOUTH TWICE A DAY NEEDED FOR 10 DAYS active Not Available Not Available No t Available temazepam 15 mg capsule TAKE 1 CAPSULE BY MOUTH EVERY DAY NEEDED 04/02 completed Not Available Not Available Not Available cephalexi n 500 mg capsule active Not Available Not Available Not Available Banophen 25 mg tablet Take 1 tablet as needed by oral route as directed for [address] Stewart Not Available Not Available No t Available nystatin- triamcino lone 100,000 unit/g-0. 1 % topical cream KACI EXT AA BID 08/02 completed Not Available Not Available Not Available sertralin e 25 mg tablet TAKE 1 TABLET BY MOUTH EVERY DAY IN THE MORNING 12/30 completed Not Available Not Available Not Available Advil 200 mg tablet Take 1 tablet every 6 hours by oral route. 09/13 completed Not Available Not Available Not Available sertralin e 50 mg tablet Take 1 tablet every day by oral route for 30 days. 2022 active Not Available Not Available Not Avai lable doxycycli ne hyclate 100 mg tablet Take 1 tablet twice a day by oral route as directed for 10 days. 03/16 completed Not Available Not Available Not Available amoxicill in 875 mg-potass ium clavulana te 125 mg tablet TAKE 1 TABLET BY MOUTH EVERY 12 HOURS FOR SINUSITI S 11/13 completed Not Available Not Available Not Available Vitamin D3 25 mcg (1,000 unit) capsule Take 1 capsule every day by oral route. 01/24 completed Not Available Not Available Not Available rosuvasta tin 20 mg tablet TAKE 1 TABLET BY MOUTH EVERYDAY AT BEDTIME active Not Available Not Available No t Available bupropion HCl XL 150 mg 24 hr tablet, extended release Take 1 tablet by oral route for 90 days. 07/31 completed Not Available Not Available Not Available Florastor 250 mg capsule TAKE 1 CAPSULE BY MOUTH ONCE DAILY 2014 active Not Available Not Available Not Avai lable aripipraz ole 1 mg/mL oral solution TAKE 3 ML EVERY DAY BY ORAL ROUTE IF NEEDED FOR 90 DAYS. active PER PATIENT PLEASE KEEP ON MED LIST Not Available Not Available Not Available EpiPen 0.3 mg/0.3 mL injection , auto-inje ctor Take 0.3 mL as needed by injectio n route as directed . 09/13 completed Not Available Not Available Not Available chlorhexi dine gluconate 0.12 % mouthwash RINSE WITH 15ML, HOLD X 30 SECONDS AND SPIT TWICE A DAY X 4 DAYS. START TAKING THE DAY AFTER SURGERY 12/30 completed Not Available Not Available Not Available aripipraz ole 2mg tablet daily active Not Available Not Available No t Available aripipraz ole 2 mg tablet TAKE 1 TABLET BY MOUTH EVERY DAY IN THE MORNING 12/30 completed Not Available Not Available Not Available Vitamin D3 125 mcg (5,000 unit) tablet Take 1 tablet every week by oral route. active Not Available Not Available No t Available Vitals Date Recorded Body height Body mass index (BMI) Body weight Heart rate Oxygen saturation Oxygen saturation in Arterial blood by Pulse oximetry Body temperature Systolic And Diastolic Provider Name and Address Organization Details Last Updated DateTime 5 160.02 cm 24.4 kg/m2 35252.7 5 g 63 /min 99 % 99 % 97.7 [degF] 104/68 mm[Hg] Geri Galvez MA [facility] 5 13:32:09 Date Recorded Body height Body mass index (BMI) Body weight Heart rate Oxygen saturation Oxygen saturation in Arterial blood by Pulse oximetry Body temperature Systolic And Diastolic Provider Name and Address Organization Details Last Updated DateTime 5 160.02 cm 23.9 kg/m2 13282.9 7 g 71 /min 98 % 98 % 97.7 [degF] 96/62 mm[Hg] Alma kimball [facility] 5 13:03:15 Date Recorded Body height Body mass index (BMI) Body weight Heart rate Oxygen saturation Oxygen saturation in Arterial blood by Pulse oximetry Body temperature Systolic And Diastolic Provider Name and Address Organization Details Last Updated DateTime 5 160.02 cm 23.6 kg/m2 93573.7 9 g 64 /min 100 % 100 % 97.8 [degF] 110/66 mm[Hg] Alma kimball [facility] 5 11:31:00 Date Recorded Body height Body mass index (BMI) Body weight Heart rate Oxygen saturation Oxygen saturation in Arterial blood by Pulse oximetry Body temperature Systolic And Diastolic Provider Name and Address Organization Details Last Updated DateTime 5 160.02 cm 23.3 kg/m2 59617.4 g 68 /min 98 % 98 % 97.7 [degF] 109/74 mm[Hg] Corina Lockwood [facility] [place] 5 14:05:32 Date Recorded Body height Body mass index (BMI) Body weight Provider Name and Address Organization Details Last Updated DateTime 07/13/2025 160.02 cm 23.2 kg/m2 66489.6 g Alma cristobal [facility] 07/13/2025 16:11:14 Social History Question Answer Notes LastModified by Organizat ion Details LastModified Time Tobacco Smoking Status Never Smoker Harriet mercado [facility] 02/04/2015 14:35:39 Do You Have An Advance Directive? Yes Information not available 05/09/2022 Is Blood Transfusion Acceptable In An Emergency? Yes Information not available 10/29/2015 What Is Your Level Of Caffeine Consumption? Moderate Coffee- 1 Daily Tea 1 Daily Information not available 11/20/2023 How Much Tobacco Do You Chew? None Information not available 10/29/2015 What Type Of Diet Are You Following? SPECIFIC Low Gluten; No Shellfish , Less Meat Information not available 03/23/2025 Which Illicit Or Recreational Drugs Have You Used? None Information not available 10/29/2015 Live Alone Or With Others? With Others Lives With Spouse (Shalini)3 Days A Week Information not available 11/20/2023 Do You Take Precautions To Prevent Distracted Driving? Yes Information not available 10/29/2015 How Often Do You Need To Have Someone Help You When You Read Instructions, Pamphlets, Or Other Written Material From Your Doctor Or Pharmacy? Sometimes Information not available 10/29/2015 Have You Served In The ? No [email or web address] [employer] Information not available 10/10/2016 Have You Or Anyone In Your Household Had Any Of The Following Symptoms In The Last 14 Days: Sore Throat, Cough, Chills, Body Aches For Unknown Reasons, Shortness Of Breath For Unknown Reasons, Loss Of Smell, Loss Of Taste, Fever At Or Greater Than 100 Degrees Fahrenheit? No Information not available 08/02/2020 Are You Or Anyone In Your Household A Health Care Provider Or Emergency Responder? No Information not available 08/02/2020 To The Best Of Your Knowledge Have You Been In Close Proximity To Any Individual Who Tested Positive For COVID-19? No Information not available 08/02/2020 *AWV ONLY* Are You Presently Prescribed Opioid Medication By PCP Or Specialist? If YES -Provider Assess The Benefit For Other, Non-opioid Pain Therapies Instead, Even If The Patient Does Not Have OUD But Is Possibly At Risk. No Information not available 08/02/2020 Have You Recently Traveled To A COVID-19 High Risk Area Or Gathering In The Last 10 Days? No Information not available 01/24/2021 What Was The Date Of Your Most Recent Tobacco Screening? 03/23/2025 Information not available 03/23/2025 How Many Children Do You Have? 0 Information not available 09/16/2021 Do You Use Protection During Sex? No Information not available 09/16/2021 Do You Use Your Seat Belt Or Car Seat Routinely? Yes Information not available 09/16/2021 Seat Belts Used Routinely Yes Information not available 05/09/2022 Are You Sexually Active? Yes Shalini Information not available 03/23/2025 Smoke Alarm In Home Yes Information not available 05/09/2022 Do You Have Smoke And Carbon Monoxide Detectors In Your Home? Yes Information not available 09/16/2021 At What Age Did You Start Smoking Tobacco? 0 Information not available 10/29/2015 Are You Passively Exposed To Smoke? No Information not available 09/13/2020 How Much Tobacco Do You Smoke? No Information not available 07/22/2015 Do You Use Sunscreen Routinely? Yes Information not available 10/29/2015 How Many Years Have You Smoked Tobacco? 0 Information not available 10/29/2015 Sex: Unknown Functional Status Question Answer Note LastModified by Organizat ion Details LastModified Time Do you use any illicit or recreational drugs? No Information not available 05/09/2022 Do you or have you ever used any other forms of tobacco or nicotine? No Information not available 05/09/2022 What is your level of alcohol consumption? Occasional socially. approx 0-2 drinks per week Information not available 03/23/2025 Do you or have you ever used smokeless tobacco? Never used smokeless tobacco rkanu Information not available 07/18/2019 Are you currently employed? 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 YESWOREST Information not available 05/09/2022 Are you able to care for yourself independently? 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 Never used electronic cigarettes Information not available 05/09/2022 What is your exercise level? Moderate daily hiking for 3 miles, yoga Information not available 03/23/2025 Mental Status None recorded. Family History Relationship Description Onset Age of this Age Resolved Age Notes LastModified by Organization Details LastModified Time Mother Malignant neoplasm of breast [email or web address] s Not available 02/24/2016 09:28:13 Mother Malignant neoplasm of lung [email or web address] s Not available 09/13/2020 10:18:23 Mother Depressive disorder [email or web address] s Not available 09/13/2020 10:18:23 Paternal Aunt Malignant neoplasm of breast [email or web address] s Not available 09/16/2021 11:08:58 Father Well adult Not available 03/23/2025 12:48:58 Father Harmful pattern of use of alcohol [email or web address] s Not available 09/13/2020 10:18:23 Maternal Grandfather Heart disease ckokar Not available 2020 11:34:41 Unspecified Relation Malignant neoplasm of colon Matern al first cousin [email or web address] s Not available 09/16/2021 11:08:58 Unspecified Relation Primary malignant neoplasm of liver 62 matern al cousin Not available 03/23/2025 12:48:58 Unspecified Relation Malignant neoplasm of lung matern al cousin [email or web address] s Not available 09/16/2021 11:08:58 Maternal Uncle Malignant neoplasm of lung bsolivanmatto s Not available 09/16/2021 11:08:58 Paternal Grandfather Malignant neoplasm of colon bsolivanmatto s Not available 09/16/2021 11:08:58 Medical History Condition Response Gout N Other N Kidney Stones N Blood Diseases N Hyperthyroidism N Breast Cancer N COPD N Depression N Lung Disease N Hypothyroidism N Defects or Inherited Disease N Anesthesia Complications N Headaches/Migraines N Anxiety Disorder N Varicose Veins Y Obesity N Vision or Eye Problems N Arthritis N Head Injury/Concussion Y Polyps N Infertility N Congenital Anomalies N Acid Reflux (GERD) N Cancer N Stroke N ADHD Y Endometriosis N High Cholesterol N Liver Disease N Fibromyalgia N Kidney Disease N Heart Problems N Ear or Hearing Problems N Hospitalizations N Thyroid Problems N GI Problems N Acne N Eating Disorder N Skin Problems N Anemia N Constipation N Bladder Problems N Mental Illness N Diabetes N Ovarian Cancer N Blood Transfusions N Seizures/Epilepsy N Tuberculosis N AIDS/HIV N Congestive Heart Failure (CHF) N Eczema N Abuse/Domestic Violence N Diverticulitis N Asthma N Allergies Y Reflux/GERD N Hepatitis N Pulmonary Embolism N Hypertension N Chicken Pox N Autism Spectrum Disorder (ASD) N Osteoporosis N Gynecological History Statement/Question Response Date of Last Pap Smear 07/17/2018 Date of Last Colonoscopy 10/21/2018 Most Recent Mammogram 03/27/2025 Most Recent Bone Density Obstetrics History GPAL:G 0 P 0 0 0 0 Immunizations Vaccine Type Date Status Note Provider Aldo e and Address Organization Details Recorded Time COVID-19 vaccine, vector-nr, rS-Ad26, PF, 0.5 mL 1 completed Gabby Lara null, [facility] 06/29/2022 15:58:23 COVID-19, mRNA, LNP-S, PF, 100 mcg/0.5mL dose or 50 mcg/0.25mL dose 1 completed Gabby Lara null, [facility] 06/29/2022 15:58:23 Influenza, split virus, quadrivalent , PF 0 completed Gabby Lara null, [facility] 06/29/2022 15:58:23 Tdap 0 completed Gabby Lara null, [facility] 06/29/2022 15:58:23 COVID-19, mRNA, LNP-S, bivalent, PF, 30 mcg/0.3 mL dose 2 completed Suzie Ernst MA null, [facility] 02/19/2023 09:13:55 COVID-19, subunit, rS-nanoparti alphonso, adjuvanted, PF, 5 mcg/0.5 mL 4 completed Buffy Bailey LPN null, [facility] 11/13/2023 14:23:55 COVID-19, subunit, rS-nanoparti alphonso, adjuvanted, PF, 5 mcg/0.5 mL 4 completed Buffy Caporale, INDUST[employer] MACHINE [employer]SEMBLER null, [facility] 12/30/2024 13:07:29 COVID-19, subunit, rS-nanoparti alphonso, adjuvanted, PF, 5 mcg/0.5 mL 5 completed Not Available [facility] 07/13/2025 16:05:47 Influenza, split virus, quadrivalent , PF 7 cancelled patient objection Not Available [facility] 10/25/2019 02:22:07 Tdap 0 completed Gabbyflora Lara null, [facility] 06/29/2022 15:58:23 Influenza, split virus, quadrivalent , PF 4 cancelled patient objection Kriss Mott MD [address], [address], [facility] 11/20/2023 15:47:10 Past Encounters Encounter ID Performer Location Encounter Start Date Encounter Closed Date Diagnosis/Indication Diagnosis SNOMED-CT Code Diagnosis ICD10 Code Diagnosis IMO Codes Diagnosis Note [id number] [facility] erce [id number] [facility] [place] [address] 09/04/2012 00:00:00 [id number] auto[employer] erce [id number] [facility] [place] [address] 05/09/2013 00:00:00 [id number] autoEComm erce [id number] [facility] [facility] [place] [address] 08/15/2013 00:00:00 [id number] auto[employer]Comm erce [address] [facility] [place] [address] 09/17/2013 00:00:00 [id number] auto[employer]Comm erce [address] [facility] [place] [address] 04/21/2014 00:00:00 [id number] Erich Connor MD Main Office [address] [address] 02/04/2015 14:12:00 02/04/2015 15:27:02 Adult health examination 041686876 [id number] Erich Connor MD Main Office [address] [address] [place] [address] 03/09/2015 13:28:48 03/09/2015 16:22:41 Laceration of finger 877747946 Index finger of left hand. No movement at PIP or DIP joint. Concern for tendon injury. 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 [id number] Erich Connor MD Main Office [address] [address] [place] [address] 10/29/2015 09:25:51 10/29/2015 10:21:52 Insomnia 963907662 G47.00 Major depr essive disorder 591980111 F32.9 [id number] Erich Connor MD Main Office [address] [address] [place] [address] 11/23/2015 09:43:59 11/23/2015 11:11:03 Major depressive disorder 665323053 F32.9 Insomnia 701489900 G47.0 0 [id number] Cuate Bliss PA-C Main Office [address] [address] [place] [address] 02/01/2016 10:33:01 02/01/2016 11:22:44 Tick bite 28798439 W57.XXXA Cutaneous hypersensitivity 97350407 T78.40XA [id number] Erich Connor MD Main Office [address] [address] [place] [address] 02/09/2016 09:42:32 02/09/2016 10:52:14 Adult health examination 933330772 Z00.00 Major depr essive disorder 921160008 F32.9 Insomnia 233747656 G47.0 0 Hyperlipidemia 21638423 E78.0 History of exposure to lead 278663111 Z77.011 [id number] Erich Connor MD Main Office [address] [address] [place] [address] 02/24/2016 09:24:43 02/24/2016 11:03:10 Lyme disease 80164774 A69.20 History of tick bite with possible early lyme [id number] Cuate Bliss PA-C Main Office [address] [address] [place] [address] 05/31/2016 13:46:54 05/31/2016 15:38:41 Infestation by Sarcoptes scabiei stacey hominis 033735578 B86 [id number] Erich Connor MD Main Office [address] [address] [place] [address] 06/06/2016 14:13:55 06/06/2016 15:47:48 Contact dermatitis caused by urushiol from [facility] 742027512 L25.5 [id number] Erich Connor MD Main Office [address] [address] [place] [address] 10/10/2016 09:45:53 10/10/2016 11:10:12 Neck pain 39852644 M54.2 [id number] Erich Connor MD Main Office [address] [address] [place] [address] 01/25/2017 14:57:22 01/25/2017 15:42:21 Allergy to food 231472631 Z91.018 Mitral valve prolapse 40 1882625 I34.1 Insomnia 974066226 G47.0 0 [id number] Erich Connor MD Main Office [address] [address] [place] [address] 02/12/2017 10:58:23 02/12/2017 11:47:34 Adult health examination 567510241 Z00.00 Insomnia 932785005 G47.0 0 Stable with rare doses of hypnotics. Reviewed risks for benzo use. Heterozygo us thalassemia 21835596 D56.3 Stable blood count Major depr essive disorder 784358820 F32.5 Doing well without medication . Stable PHQ9 scores [id number] Erich Connor MD Main Office [address] [address] [place] [address] 04/17/2017 10:49:13 04/17/2017 12:19:27 Contact dermatitis caused by urushiol from [facility] marko 272084857 L25.5 Dental caries 63072288 K 02.9 [id number] Cuate Bliss PA-C Main Office [address] [address] [place] [address] 07/26/2017 08:33:17 07/26/2017 09:19:12 Allergic rhinitis 18372073 J30.9 Upper resp iratory infection 17243418 J06.9 sx for 1 week - mild symptoms, improving lately rec to use warm fluids, nasal saline, NetiPot, SudaFed PE Call or return if symptoms persist or worsen [id number] Erich Connor MD Main Office [address] [address] [place] [address] 08/15/2017 14:17:41 08/15/2017 15:03:49 Immunization refused 753490017 Z28.21 Allergy to food 90920093 1 Z91.018 Hyperlipidemia 13353324 E78.5 Fatigue 27746575 R53.83 Pain of mu ltiple joints 51566652 M25.50 [id number] Erich Connor MD Main Office [address] [address] [place] [address] 01/07/2018 15:53:29 01/07/2018 16:37:46 Hepatitis C screening 955409294 Z11.59 Screening for malignant neoplasm of cervix 140025167 Z12.4 Pain of mu ltiple joints 15736894 M25.50 [id number] Erich Connor MD Main Office [address] [address] [place] [address] 04/12/2018 13:44:57 04/12/2018 14:41:36 Screening for malignant neoplasm of cervix 540627642 Z12.4 Adult [facility] th examination 962830573 Z00.00 Insomnia 089637221 G47.0 0 Stable with rare doses of hypnotics. Reviewed risks for benzo use. Major depr essive disorder 343410347 F32.5 Doing well without medication . Stable PHQ9 scores Screening for malignant neoplasm of colon 058485763 Z12.11 [id number] Jaci david MD Main Office [address] [place] [address] 09/12/2018 09:58:03 09/12/2018 10:46:22 Tick bite 94080980 W57.XXXA right shoulder in 08/25, was embedded, repeat lyme due to hx and joint aches, no role for empiric treatment. Pain of mu ltiple joints 59802257 M25.50 recheck labs, encouraged stretching , pt is very active hikes 5 miles a day Seasonal a llergic rhinitis 043110356 J30.2 pt to set up allergy appt for sinus congestion onfogong Insect bit e, nonvenomous, of shoulder 321389340 S40.261A [id number] Alek Lamb MD Main Office [address] [place] [address] 10/31/2018 13:33:46 10/31/2018 14:03:49 Acute sinusitis 10110117 J01.90 ? viral vs secondary bacterial process. Impetigo 45786048 L01.00 Shoudl cover for sinustitis as well. Call inb/worse. [id number] Erich Connor MD Main Office [address] [address] [place] [address] 07/18/2019 15:00:14 07/18/2019 16:21:20 Adult health examination 767042911 Z00.00 Major depr essive disorder 542514582 F32.5 Doing well without medication . Stable PHQ9 scores Hyperlipidemia 65718299 E78.5 Fatigue 59677625 R53.83 Tinea cruris 553010208 B 35.6 Normal bod y mass index 25823849 Z68.24 [id number] Jaci david MD Main Office [address] [address] [place] [address] 12/19/2019 13:09:25 12/19/2019 13:51:04 Pneumonia 164159362 J18.9 Mild pneumonia, rest, hydration, steam otc cough med if needed. Call if not improving in the next few days, sooner if worsening [id number] Alek Lamb MD Main Office [address] [address] [place] [address] 08/02/2020 09:29:10 08/02/2020 10:11:45 Needs influenza immunization 717808595 Z23 Contusion of lower leg 33503919 S80.11XA Normal resolving course following contusion/ bruising following localized trauma. Reassuranc e provided. Call if pain persists after 3-4 weeks of healing. [id number] Erich Connor MD Main Office [address] [address] [place] [address] 09/13/2020 10:12:42 09/13/2020 11:28:29 Adult health examination 712294354 Z00.00 Subclinica l hypothyroidism 71898695 E02 Administra tion of viral vaccine 03865687 Z23 Tick bite 87158528 W57.X XXA Location is on back Allergic rhinitis 160785 04 J30.9 Pain of mu ltiple joints 60672788 M25.50 Hyperlipidemia 22100265 E78.5 Inflammati on of sacroiliac joint 27380921 M46.1 Major depr essive disorder 225700453 F32.5 Doing well without medication . Stable PHQ9 scores Insect bit e, nonvenomous, of back 215545007 S20.461A [id number] Jaci david MD Main Office [address] [address] [place] [address] 01/24/2021 14:58:23 01/24/2021 15:33:35 Tick bite 93833605 W57.XXXA left upper thigh. Will apply warm compresses to help any foreign body come to the surface although none seen today. Will do lyme test at the 10-14 day fabiola. Call if any sx of lyme Insect bit e, nonvenomous, of thigh 346585199 S70.362A [id number] Kriss Mott MD Main Office [address] [address] [place] [address] 05/09/2021 14:13:38 05/09/2021 14:32:59 Change in skin lesion 782666729 L98.9 Giving the fact that lesion is evolving, with change in color will refer to derm. [id number] Kriss Mott MD Main Office [address] [facility] [place] [address] 09/16/2021 11:02:10 09/16/2021 12:07:30 Major depressive disorder 450846182 F32.5 Denies homicidal, suicidal ideation and no hallucinat ions.Notes situationa l anxiety with family otherwise anxiety well contrilled , uses temazepam prn Adult heal th examination 318273338 Z00.00 Patient was counseled on healthy diet, exercise and nutrition due to Body mass index is 22.3 kg/m . Last Colonoscop y:Date: 10/21/18Res ult: tubelor adenomaPla n:repeat 5yr per GI Last Mammogram: Date: 05/13/2020Re sult: Birad-1Pla n: script provided Last Pap smearDate: 07/17/18Re sult: Neg for SUSY, HPV neg, TZ presentPla n: Repeat 5yrs per USPTF, tells me she had in 2019, advised to get records Bone density scanDate:R esult:Plan : not due Vaccines:T dAP: 09/13/2020Z justine: script provided.P CV13: Not xbbGQCD03: not dueInfluen za[place] Had J&J 01/12/21 then pfizer 08/15/21 Routine labs today Immunizati on status reviewed. Will screen based on risk factors. Regular dental and ophtho care advised as well as seat belt and sunscreen use. Distracted driving discussed. Medication reconciled . Varicella vaccination 68 560054 Z23 Screening for malignant neoplasm of breast 834016434 Z12.39 Fatigue 11094773 R53.83 Hyperlipidemia 11027021 E78.5 Tick bite 10445717 W57.X XXA Right thighs occurred around May.Pat ient wants to wait for result prior to treat. Insect bit e, nonvenomous, of thigh 520441369 S70.361A Decreased hearing 079451 001 H91.90 Was seen by ENT in past noted had some deficit been ove 2 yrs requesting hearing test follow up. [id number] Kriss Mott MD Main Office [address] [facility] [address] [facility] [place] [address] 05/09/2022 13:49:31 05/09/2022 14:23:51 Fatigue 91567709 R53.83 Pt is under a lot of stress recentlyPt denies any symptoms of depression Report no problems with sleepiness Ordered repeat TSH and FT4 has patient higher levels of normal in the past Pain of mu ltiple joints 45374376 M25.50 Chronic issue however in the last few months worsenedPo ssible differenti als include: OA, rheumatolo gical disorder, lyme diseaseDue to worsening ordered ESR, CRP, RA and ANAPt does not meet criteria for fibromyalg ia, (score of 2, does not meet fibromyalg ia criteria)P t does endorse a tick bite therefore will check for lyme disease as could be cause of joint painEndors ed to patient to continue with exercise and to start or swimmingWi ll continue to monitor Carpal iliana grace syndrome 20022413 G56.03 + for Phalen's testCounse lled on using night splints when going to bed at nightExerc ises provided to patientPt denies any weakness or numbness in the fingers Abdominal pain 76390163 R10.9 pain located in the right lower quadrantha s been present for a few weeksOn PE has tenderness in the right lower quadrant and positive obturatorD ue to concerning findings on physical exam for possible appendicit is ordered a CT scan of the abdomen and pelvis with IV contrast to rule out disease> Please note patient has a severe allergy to shrimp. Pt was reassured that IV contrast is safe and will not cause allergic reaction. Will also make radiologis t aware.> Pt advised to keep hydrated before and after imaging. Pt has no hx of kidney disease.Wi ll review CT scan and if negative will continue to investigat e other causes of abdominal pain. [id number] Kriss Mott MD Main Office [address] [facility] [place] [address] 05/22/2022 13:11:13 05/22/2022 15:00:06 Pain of multiple joints 00821308 M25.50 Reminded to get labs Abdominal pain 51453288 R10.9 reassuring , with wnl CT, notes daily bm movement.S he will try otc enetric coated peppermint oil if no improvemen t will refer to GI. [id number] Sheri shepherd, DIE FITTER Main Office [address] [place] [address] 02/19/2023 09:06:36 02/19/2023 09:53:28 Moderate major depression, single episode 94366524 F32.1 Pt declines medication at this time, agrees to see therapist, will call for appt carson. Discussed SSRi for anxiety and depression , reviewed side effects, risks and benefits. I think it would help. She is not ready to do this, will think about it. Call if any acute change or SI, HI Generalize d anxiety disorder 76309768 F41.1 see above, pt is struggling but not acute, denies need for urgent eval in ED. [id number] Sheri shepherd NP Main Office [address] [address] [place] [address] 04/02/2023 15:28:56 04/04/2023 08:47:03 Major depressive disorder 580081321 F32.5 much improved with medication and therapy, continue plan of care for now Generalize d anxiety disorder 69129580 F41.1 Also much improved, stable mood, no SI or HI [id number] Kriss Mott MD Main Office [address] [address] [place] [address] 06/08/2023 13:52:00 06/08/2023 14:26:34 Pain of multiple joints 15465718 M25.50 Neuropathy 347520796 G62 .9 Exposure t o hazardous metal 9932488185 69523 Z77.018 Neck pain 03814017 M54.2 Varicose v eins of lower extremity 73043622 I83.893 [id number] Alek Lamb MD Main Office [address] [address] [place] [address] 07/31/2023 13:51:22 07/31/2023 14:30:28 Acute sinusitis 45289808 J01.90 Duration and quality of symptoms warrants tx for bacterial sinusitis. Call inb/worse. May need to consider steroid or broader spectrum abx or imaging then. [id number] Lance Rae MD Main Office [address] [address] [place] [address] 11/13/2023 14:13:34 11/13/2023 14:56:42 Venous varices 109022212 I83.92 s/p visit to vascular for surgery/ procedures on left leg. has a palpable lump to posterior left leg attributed to cord by vascular. Had US with vascular yesterday, no DVT, but has reflux and vascular has no further concerns. Continue to massage the cord and use warm compresses . likely has sensation change due to nerve being so close to the area.Shoul d she develop larger area of induration , erythema, pain, swelling of leg/ worsening sx should be seen by vascular again or return here. [id number] Kriss Mott MD Main Office [address] [facility] [address] [facility] [place] [address] 11/20/2023 15:02:10 11/20/2023 16:04:18 Adult health examination 811633619 Z00.00 Patient was counseled on healthy diet, exercise and nutrition due to Body mass index is 23.4 kg/m . Last Colonoscop y:Date: 10/21/18Res ult: tubular adenomaPla n:repeat 5yr per GI, per pt has apt 03/31 Last Mammogram: Date: 04/26/23Res ult: Birad-1Pla n: due 04/30 Last Pap smearDate: 07/17/18Re sult: Neg for SUSY, HPV neg, TZ presentPla n: Repeat 5yrs per USPTF, tells me she had in 2019, advised to get records Bone density scanDate:R esult:Plan : not due Vaccines:T dAP: 09/13/2020Z justine: Does not think she had cpox, will check titiers.PC V20: Not dueInfluen za: encourage, declined.C ovid: 10/21/23RSV : discussed. Routine labs today Immunizati on status reviewed. Will screen based on risk factors. Regular dental and ophtho care advised as well as seat belt and sunscreen use. Distracted driving discussed. Medication reconciled . Fatigue 48750312 R53.83 Hyperlipidemia 16511842 E78.5 Administra tion of viral vaccine 81452221 Z29.11 Blood sent - infectious titers 122922031 Z75.2 Influenza vaccination declined 070135528 Z28.21 Major depr ession in remission 96727855 F32.5 In remission no thoughts of self harm or harming others. [id number] Lance Rae MD Main Office [address] [address] 12/30/2024 12:59:24 12/30/2024 13:35:53 Fatigue 07458882 R53.83 r/o anemia, diabetes, electrolyt e imbalance, thyroid dysfunctio n. Tendinitis of right shoulder 7457607012 865341 M75.91 overuse injury of the R. anterior shoulder due to rowing. Pt. is advised to decrease activity. Stretches prior to exercise. Use Icy Hot or voltaren gel. Left Achil les tendinitis 2924203405 57351 M76.62 overuse due to hiking 5-6 miles most days of the week. Achilles exercises provided to do at home and adjust activity. Cramp in lower limb 4499 99884 R25.2 secondary to intensive walking and climbing. recommend calf stretches prior to activity, decrease to every other day climbing . [id number] Kriss Mott MD Main Office [address] [address] 03/23/2025 12:48:26 03/23/2025 13:38:19 Adult health examination 305387415 Z00.00 Patient was counseled on healthy diet, exercise and nutrition due to Body mass index is 23.9 kg/m . 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 Routine labs today Immunizati on status reviewed. Will screen based on risk factors. Regular dental and ophtho care advised as well as seat belt and sunscreen use. Distracted driving discussed. Medication reconciled . Fatigue 45235474 R53.83 Hyperlipidemia 12500713 E78.5 Major depr ession in remission 15777967 F32.5 In remission no thoughts of self harm or harming others. Screening for malignant neoplasm of breast 949109816 Z12.39 Breast finding 091557517 R92.30 376235 Microscopic hematuria 19 9559062 R31.29 048059 Heterozygo us thalassemia 29492088 D56.3 Impaired f asting glycemia 817236758 R73.01 135633 Subclinica l hypothyroidism 65588764 E03.8 89479 Varicella vaccination 68 834416 Z23 Administra tion of pneumococcal vaccine 61573660 Z23 [id number] Lance Rae MD Main Office [address] [address] [place] [address] 02/27/2025 13:47:55 02/27/2025 14:14:21 Tick bite 01460043 S70.362A W57.XXXA 33875455 -tick first noticed and removed on 02/13-denies of any fever, chills, fatigue-re ports of erythemato us circular rash around the bite site-will check tick borne disease profile as its been 2 weeks-will provide doxycyclin e course given rash [id number] Lance Rae MD Main Office [address] [place] [address] 03/16/2025 13:25:54 03/16/2025 13:52:31 Pain of right shoulder region 0096441414 M25.511 30149893 x1 month of right shoulder pain-hx of rowing daily-sinc e onset of pain has stopped rowing daily-radha p ache pain with extension and internal/e xternal rotation of the shoulder-o ccasional sharp pain radiating down right arm with movement-l ikely related to an overuse/re petitive movement>d iscussed conservati ve measuremen ts-will refer to PT and order xray [id number] Kriss Mott MD Main Office [address] [address] [place] [address] 04/07/2025 11:09:07 04/07/2025 12:11:57 Dyspnea on exertion 97886191 R06.09 683247 Microscopic hematuria 19 3565768 R31.29 268982 Repeat urine shows resolution , hold cytology for now. First degr ee atrioventricular block 115237655 I44.0 289378 [id number] Kriss Mott MD Main Office [address] [place] [address] 05/08/2025 13:45:30 05/08/2025 14:23:20 Pain of right shoulder region 9346797498 M25.511 61674924 Cardiovasc ular stress test abnormal 411095848 R94.39 3152740 [id number] Kriss Mott MD Main Office [address] [place] [address] 07/13/2025 16:04:52 07/14/2025 11:10:22 Injury of tendon of the rotator cuff of shoulder 213233058 S46.001D 5426667 Cardiovasc ular stress test abnormal 659898068 R94.39 0600832 Health Concerns Section Related Observation LastModified by Organization Detai ls LastModified Time None Recorded Concern Status LastModified by Organization Details LastModified Time None Recorded Advance Directives Directive Y: Payers Insurance Date Sequence Insurance Name Policy Number Policy Roy Covered Member ID Roy Member ID Guarantor Name 06/08/2023 1 [facility]) Melisa Encarnacion [id number] Melisa Encarnacion 07/16/2025 2 [place] [employer] [facility] (HMO) [id number] RER Shalini Mack [id number] Melisa Rayoario 08/02/2020 1 [place] [id number] Shalini Frederick [id number] Melisa Ferrario 07/16/2025 1 [facility] [id number] Shalini Fredreick [id number] Melisa Rayoario 06/08/2023 1 [place] [facility] Melisa Encarnacion [id number] Melisa Rayoario 06/08/2023 1 [facility] eMlisa Encarnacion [id number] Melisa Encarnacion 06/08/2023 1 [facility] (MEDICAID HMO) Melisa Encarnacion [id number] Melisa Encarnacion 09/13/2020 1 [facility] (PPO[facility] [id number] Shalini Mack [id number] Melisa Encarnacion 06/08/2023 1 [facility] - [facility] Melisa Encarnacion [id number] Melisa Encarnacion 06/08/2023 1 [facility] Melisa Encarnacion [id number] Melisa Encarnacion Notes Date Note Type Note Provider Name and Address Organization Details Recorded Time 03/16/2025 text/html Musculoskeletal PainReported by PatientHPIFor quality, patient reportsachingandsharp. For severity, patient reportsworsening. For location, patient reportsright shoulder. For timing, patient reportsconstant. For context, patient reportsoveruse(rows daily, since injury has stopped rowing). For alleviating factors, patient reportsrest. For aggravating factors, patient reportsmovement/positi oning. For associated symptoms, patient reportsno fever,no weak limbs,no tingling,no numbness of the legs/feet, andon incontinence. For duration, (1 month).ROS as noted in the HPI Melisa is a 59yr old F who presents for right shoulder pain x1 month. Reports of rowing daily for exercise. Pain in right shoulder with extension and lifting. Since onset of pain, pt has stopped rowing. Notes the pain has remained constant, worsening since onset. Describes the pain to be a sharp ache with occasional radiating pain/pinch sensation down the right arm. Denies of any red flag symptoms. ROYCE SANFORD [address] [address], [place], [address], [facility] 03/16/2025 22:40:51 03/23/2025 text/html Generic HPI TemplateReported by Patient Here for wellness visit. Reviewed chronic medications and medical problems. Discussed screening guidelines as well as goals for fitness and weight management. Mostly plant base diet, does meat and fish weekends. Kriss Mott MD [address] [address], [place], [address], [facility] 03/23/2025 13:33:31 04/07/2025 text/html The patient presents with a 6-month history of progressive dyspnea on exertion, primarily noted during uphill walking and aerobics classes. She describes this as a new symptom with decreased exercise tolerance. She denies chest pain, radiation to the arm/jaw/back, and has no history of resting dyspnea, orthopnea, paroxysmal nocturnal dyspnea (PND), lower extremity edema, palpitations, dizziness, or syncope. She reports increased fatigue, but otherwise no significant cardiopulmonary complaints. Kriss Mott MD [address] [facility] [address], [place], [address], [facility] 04/07/2025 13:00:46 05/08/2025 text/html Musculoskeletal PainReported by PatientHPIFor quality, patient reportsachingandsharp. For severity, patient reportsworsening. For location, patient reportsright shoulder. For timing, patient reportsconstant. For context, patient reportsoveruse(rows daily, since injury has stopped rowing). For alleviating factors, patient reportsrest. For aggravating factors, patient reportsmovement/positi oning. For associated symptoms, patient reportsno fever,no weak limbs,no tingling,no numbness of the legs/feet, andon incontinence. For duration, (1 month).Patient presents for follow-up for persistent right shoulder pain. She previously initiated physical therapy; however, therapy had to be discontinued prematurely due to pain and inability to tolerate recommended exercises. Pain is described as ranging from sharp to aching and limits her ability to perform certain activities. Nyuq-fwj-lqtfzlg ibuprofen 400 mg has provided no relief. She has had a prior shoulder X-ray. She is right-hand dominant. She also recently underwent a nuclear medicine stress test, which showed a mild reversible defect. She currently takes enteric-coated aspirin 81 mg daily and 20mg rosuvastatin. Cardiology referral was made.ROS as noted in the HPI Kriss Mott MD [address] [facility] [address], [place], [address], [facility] 05/10/2025 15:22:39 07/13/2025 text/html ROS as noted in the HPI Patient was seen today via telehealth for follow-up regarding her right shoulder rotator cuff tendinopathy.She reports that she was evaluated by orthopedic surgery, where after review and discussion of treatment options, surgical repair was recommended rather than continuing further conservative management. Surgery has been scheduled for repair of the rotator cuff. Regarding her cardiac evaluation, she was seen by a materials analyst who recommended continuing her current aspirin and statin therapy. The materials analyst also advised obtaining coronary CTA with contrast and an echocardiogram as part of her ongoing cardiac assessment. She reports no new symptoms or concerns today and is otherwise doing well.Medical records from the orthopedic office are not yet available; a request will be sent for documentation. Kriss Mott MD [address] [address], [place], [address], [facility] 07/13/2025 18:31:39 OBGyn Episode No OBEpisode recorded.
--- OUTSIDE RECORDS SUMMARY | 2025-07-24 09:18 | XMS_ITS | Patient Health Record ---
Author Organization [facility] Address [address] [place] [address] Care Team Providers Care Thread Spooler Name Role Phone Waldemar Mauro Primary Care Provider Reagan Sauer Unavailable [phone] Allergies Allergen (clinical drug ingredient) Drug/Non Drug Allergy documented on EMR Reaction Allergy Type Onset Date Status IVP Dye (uncoded) Unknown Allergy Ac tive dairy,cats,wheat,all shell fish (uncoded) Unknown Allergy Active Reason For Referral No Information Medications Medication SIG (Take, Route, Fr equency, Duration) Notes Start Date End Date Status LORazepam 0.5 MG Oral; Duration: 10 PRN Active Latanoprost 0.005 % INSTILL 1 DROP INTO BOTH EYES AT BEDTIME Ophthalmic; Duration: 75 Active ARIPiprazole 2 MG Oral; Duration: 30 Active Vitamin C 500 MG as directed Orally Active Immunizations Vaccine Route Administration Date Status Comme nts Influenza Unknown 10/09/2018 Refused Problems Problem Type SNOMED Code ICD Code Onset Dates Problem Status W/U Status Risk Notes Problem Screening for malignant neoplasm of colon (133067318) Encounter for screening for malignant neoplasm of colon (Z12.11) Active confirmed Problem History of polyp of colon (situation) (051015665) Personal history of colonic polyps (Z86.010) Active confirmed Problem Diverticular disease of colon (485907106) Diverticulosis of large intestine without perforation or abscess without bleeding (K57.30) Active confirmed Problem Preprocedural examination (555476681843279) Preprocedural examination (Z01.818) Active confirmed Problem History of adenomatous polyp of colon (037287846) Hx of adenomatous colonic polyps (Z86.010) Active confirmed Plan Of Treatment Future Test Test Name Order Date COLONOSCOPY 05/20/2013 COLONOSCOPY 10/09/2018 COLONOSCOPY 03/14/2024 Insurance Providers Payer Name Payer Address Payer Phone Subscriber Number Group Number Insured Name Patient Relationship to Insured Coverage Start Date Coverage End Date [facility] [address] [place] [address] [id number] DIMITRI WALTER Self - patient is the insured Medical (General) History Medical History History ICD Code Denies RI,DM,CVA,Lung disease,renal dise ase Thalassemia with chronic ane [...]
--- OUTSIDE RECORDS SUMMARY | 2025-07-24 09:18 | XMS_ITS | Clinical Summary ---
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 Name Role Phone Erich Connor MD Primary Care Provider [phone] Allergies No known active allergies Medications EPINEPHrine [...] Shingrix (RZV) 2 Dose Standard Series) 2013 Influenza vaccine 05/08/2025 Covid-19 vaccine series (1 - 2024- season) 2025 RSV Immunization (1 - 1-dose 75+ series) 2038 Meningococcal B Vaccine Aged Out No l onger eligible based on patient's age to complete this topic Meningococcal Vaccine Aged Out No filomena laci eligible based on patient's age to complete this topic Insurance Practice [employer] Care Teams Carbon Capture Power Plant Manager Relationship Specialty Start Date End Date Erich Connor MD [address] [id number] PCP - General Internal Medicine 01/20/17
== END ==
LOC: HO.CARD 08:48
PROVIDERS: PCP Family Medicine; Visit Provider Internal Medicine Cardiovascular Disease
DX: R94.31 Abnormal electrocardiogram [ECG] [EKG] (principal)
CPT/HCPCS: 93306

== ENCOUNTER → 2025-07-24 08:51 | Outpatient (BNV) | payer BC, SELFPAY | PROVIDERS: PCP Family Medicine; Visit Provider Internal Medicine Cardiovascular Disease | DX: R94.31 Abnormal electrocardiogram [ECG] [EKG] (principal); I51.7 Cardiomegaly | CPT/HCPCS: 93306 ==